=== PATIENT | male | born 1955 | race Caucasian/White ===

== ENCOUNTER → 2018-07-21 11:41 | Outpatient (CLI) | payer MEDICARE, SELFPAY ==
[2018-07-21 13:54] LABS: Alanine Aminotransferase 32 IU/L (21-72); Albumin 4.4 g/dL (3.5-5.0); Albumin Globulin Ratio 1.5 (1.0-2.8); Alkaline Phosphatase 74 U/L (38-126); Aspartate Aminotransferase 24 IU/L (17-59); Bilirubin Total 0.6 mg/dL (0.2-1.3); Blood Urea Nitrogen 17 mg/dL (9-20); Calcium 9.2 mg/dL (8.4-10.2); Carbon Dioxide 26 mmol/L (22-32); Chloride 101 mmol/L (98-107); Estimated Glomerular Filt Rate > 60.0 mL/min (>60); Globulin 2.9 g/dL (1.7-4.1); Glucose 155 mg/dL (80-110); HEMOLYSIS < 15 (0-50); Phenytoin / Dilantin 21.9 ug/mL (10-20); Potassium 4.2 mmol/L (3.4-5.1); Sodium 137 mmol/L (137-145); Total Protein 7.3 g/dL (6.3-8.2)
[2018-07-21 14:20] LABS: Prostate Specific Antigen Scrn 0.353 ng/mL (0.1-4.0)
== END ==
PROVIDERS: Family Provider Internal Medicine; PCP Internal Medicine; Visit Provider Internal Medicine
DX: Z12.5 Encounter for screening for malignant neoplasm of prostate (principal); G40.909 Epilepsy, unspecified, not intractable, without status epilepticus; Z13.1 Encounter for screening for diabetes mellitus; Z13.6 Encounter for screening for cardiovascular disorders
CPT/HCPCS: 36415; 80053; 80185; G0103

== ENCOUNTER 2018-12-19 20:55 | Emergency (ER) | payer MEDICARE, SELFPAY ==
[2018-12-19 21:03] VITALS: BP 159/74; PULSE 87; RESP 16; TEMP 36.7; O2SAT 95; BMI 33.9
--- NOTE | 2018-12-19 21:11 | ED_ITS ---
HPI - Male Genitourinary General Chief complaint: Urogenital-Male Stated complaint: blood in urine Time Seen by Provider: 12/19/18 20:57 Source: patient and family Mode of arrival: Ambulatory Limitations: no limitations History of Present Illness HPI Narrative: 63M smoker with history of seizures presents with his and the chief complaint of painless hematuria this afternoon. He denies any dysuria, frequency or urgency. He denies any flank pain, nausea or vomiting. He denies any dizziness, weakness or lightheadedness. He denies any recent injuries upper respiratory complaints or other. Denies any history of the same Onset (ago): hour(s) Related Data Previous Rx's Medication Instructions Recorded phenytoin sodium extended 100 mg See Rx Instructions .ROUTE 12/14/18 capsule .COMPLEX #120 capsule cephalexin [Keflex] 500 mg PO QID 7 Days #28 cap 12/20/18 hydrocodone-acetaminophen 1 tab PO Q4-6H PRN #10 tab 12/20/18 ondansetron 4 mg PO TID-QID PRN #10 tab 12/20/18 Allergies Allergy/AdvReac Type Severity Reaction Status Date / Time Penicillins [PENICILLINS] Allergy Mild RASH Verified 12/04/18 08:51 Review of Systems Constitutional Constitutional: Denies chills, Denies fatigue, Denies fever(s), Denies frequent falls, Denies lethargy and Denies weakness Eyes Eyes: Denies change in vision, Denies eye discharge, Denies irritation and Denies loss of vision ENT Ears, Nose, Mouth, and Throat: Denies change in voice, Denies dizziness, Denies neck pain, Denies sore throat and Denies throat swelling Cardiovascular Cardiovascular: Denies chest pain, Denies irregular heart rhythm, Denies lightheadedness, Denies palpitations, Denies dyspnea, Denies dyspnea on exertion and Denies orthopnea Respiratory Respiratory: Denies cough, Denies dyspnea, Denies dyspnea on exertion and Denies wheezing Gastrointestinal Gastrointestinal: Denies abdominal pain, Denies change in bowel habits, Denies diarrhea, Denies nausea and Denies vomiting Genitourinary Genitourinary: Reports hematuria, Denies flank pain, Denies urinary incontinence and Denies urinary urgency Musculoskeletal Musculoskeletal: Denies back pain, Denies muscle weakness, Denies neck pain, Denies numbness and Denies tingling Integumentary/Breasts Skin/Breast: Denies pruritus, Denies erythema, Denies rash and Denies wounds Neurologic Neurologic: Denies behavioral changes, Denies confusion, Denies dizziness, Denies frequent falls, Denies loss of vision, Denies numbness, Denies tingling and Denies weakness Psychiatric Psychiatric: Denies anxiety, Denies behavioral changes, Denies confusion, Denies depression, Denies homicidal ideation and Denies suicidal ideation Endocrine Endocrine: Denies fatigue, Denies flushing and Denies palpitations Hematologic/Lymphatic Hematologic/Lymphatic: Denies easy bruising Allergic/Immunologic Allergic/Immunologic: Denies urticaria, Denies throat swelling and Denies wheezing Patient History Medical History History of adenomatous polyp of colon (Inactive 01/07/11) Seizure disorder (Chronic 01/07/11) Surgical History Status post colectomy (Inactive) Social History Smoking Status: Current every day smoker alcohol intake frequency: 0-2 drinks per day Substance Use Type: marijuana Exam Narrative Exam Narrative: GENERAL: [63] year old patient appears stated age. Well- nourished, well-developed patient, in mild distress. HEAD: Atraumatic. Normocephalic. EYES: Pupils equal round and reactive. Extraocular motions intact. No scleral icterus. No injection or drainage. ENT: Nose without bleeding, purulent drainage. Throat without erythema, tonsillar hypertrophy or exudate. Airway patent. NECK: Trachea midline. Non tender CARDIOVASCULAR: Regular rate and rhythm without murmurs, gallops, or rubs. RESPIRATORY: Decreased breath sounds B/L with prolonged expiratory phase GASTROINTESTINAL: Abdomen soft, non-tender, nondistended. EXTREMITIES: No edema or joint tenderness. BACK: Nontender without deformity or crepitance. No flank tenderness. NEURO: AOx3. SKIN: No rash or erythema of visible areas Initial Vital Signs Initial Vital Signs: Vital Signs Temperature 98.0 F 12/19/18 21:03 Pulse Rate 87 12/19/18 21:03 Respiratory Rate 16 12/19/18 21:03 Blood Pressure 159/74 H 12/19/18 21:03 Pulse Oximetry 95 12/19/18 21:03 Course Orders Ordered: ED Orders 12/19/18 21:05 Urinalysis and Microscopic Stat 12/19/18 21:10 Basic Metabolic Panel Stat Complete Blood Count AUTO DIFF Stat Prothrombin Time INR Stat 12/19/18 21:50 Urinalysis and Microscopic Stat 12/19/18 23:27 CT kidney ureter bladder (KUB) Stat Discontinued Medications Hydrocodone Bitart/Acetaminophen (Vicodin Prepack) 1 bottle MISC SEEINSTR ONE Stop: 12/20/18 00:52 Last Admin: 12/20/18 01:13 Dose: 1 bottle Documented by: ROSA Ketorolac Tromethamine (Toradol) 15 mg IV NOW ONE Stop: 12/19/18 23:28 Last Admin: 12/19/18 23:35 Dose: 15 mg Documented by: ROSA Nicotine (Nicoderm) 21 mg TOP NOW ONE Stop: 12/19/18 21:18 Last Admin: 12/19/18 21:45 Dose: 21 mg Documented by: ROSA Ondansetron HCl (Zofran) 4 mg IV NOW ONE Stop: 12/19/18 23:28 Last Admin: 12/19/18 23:34 Dose: 4 mg Documented by: ROSA Ondansetron HCl (Zofran Odt Prepack) 1 bottle MISC SEEINSTR ONE Stop: 12/20/18 00:52 Last Admin: 12/20/18 01:13 Dose: 1 bottle Documented by: ROSA Reevaluation(s) Reevaluation #1: called to see patient for episode of severe, brief L flank pain and vomiting, CT ordered Consultations Consultation #1: call to Dr. Flores, urology at whom recommends follow up with their clinic next week, she took his contact info and will reach out Vital Signs Vital signs: Vital Signs - 8 hr 12/19/18 21:03 12/20/18 01:26 Temperature 98.0 F 98.0 F Pulse Rate 87 79 Respiratory Rate 16 16 Blood Pressure 159/74 H 146/75 H Pulse Oximetry 95 94 MDM - Male Genitourinary Lab Data Result diagrams: 12/19/18 21:10 12/19/18 21:10 Labs: Lab Results 11/09/19 11/09/19 11/09/19 Range/Units 21:05 21:10 21:10 WBC 8.2 (4.5-11.0) X10^3/uL RBC 5.72 (4.5-5.9) X10^6/uL Hgb 18.1 H (13.5-17.5) g/dL Hct 52.6 (41-53) % MCV 91.9 (80-100) fL MCH 31.6 (26-34) PG MCHC 34.4 (30-36) % RDW 13.8 (11.6-14.8) % Plt Count 197 (150-400) X10^3/uL Neut % (Auto) 53.3 (50-75) % Lymph % (Auto) 33.3 (25-40) % Clinton % (Auto) 9.1 (3-14) % Eos % (Auto) 3.3 (2-4) % Baso % (Auto) 1.0 (0-2) % Neut # (Auto) 4400 (2369-9722) /uL Lymph # (Auto) 2700 (2181-8158) /uL Clinton # (Auto) 700 (0-900) /uL Eos # (Auto) 300 (0-450) /uL Baso # (Auto) 100 (0-100) /uL PT (10.1-12.7) SECONDS INR (0.9-1.3) Sodium 137 (137-145) mmol/L Potassium 4.0 (3.4-5.1) mmol/L Chloride 102 (98-107) mmol/L Carbon Dioxide 27 (22-32) mmol/L BUN 18 (9-20) mg/dL Creatinine 1.00 (0.66-1.25) mg/dL Estimated GFR > 60.0 (>60) mL/min BUN/Creatinine Ratio 18.0 (6-22) Glucose 115 H (80-110) mg/dL Calcium 8.7 (8.4-10.2) mg/dL Urine Color Red Urine Appearance Other Urine pH Not Reportable Ur Specific Goode Not Reportable Urine Protein Not Reportable Urine Glucose (UA) Not Reportable Urine Ketones Not Reportable Urine Occult Blood Not Reportable Urine Nitrate Not Reportable Urine Bilirubin Not Reportable Urine Urobilinogen Not Reportable Ur Leukocyte Esterase Not Reportable Urine RBC Not Reportable Urine WBC Not Reportable Urine Bacteria Not Reportable Ur Culture Indicated? Cult not indicated Micro UA Comment * 12/19/18 12/19/18 Range/Units 21:10 21:50 WBC (4.5-11.0) X10^3/uL RBC (4.5-5.9) X10^6/uL Hgb (13.5-17.5) g/dL Hct (41-53) % MCV (80-100) fL MCH (26-34) PG MCHC (30-36) % RDW (11.6-14.8) % Plt Count (150-400) X10^3/uL Neut % (Auto) (50-75) % Lymph % (Auto) (25-40) % Clinton % (Auto) (3-14) % Eos % (Auto) (2-4) % Baso % (Auto) (0-2) % Neut # (Auto) (3680-8834) /uL Lymph # (Auto) (3112-6119) /uL Clinton # (Auto) (0-900) /uL Eos # (Auto) (0-450) /uL Baso # (Auto) (0-100) /uL PT 11.2 (10.1-12.7) SECONDS INR 1.0 (0.9-1.3) Sodium (137-145) mmol/L Potassium (3.4-5.1) mmol/L Chloride (98-107) mmol/L Carbon Dioxide (22-32) mmol/L BUN (9-20) mg/dL Creatinine (0.66-1.25) mg/dL Estimated GFR (>60) mL/min BUN/Creatinine Ratio (6-22) Glucose (80-110) mg/dL Calcium (8.4-10.2) mg/dL Urine Color Red Urine Appearance Other Urine pH 7.0 Ur Specific Goode 1.015 Urine Protein 3+ H Urine Glucose (UA) Negative Urine Ketones Not Reportable Urine Occult Blood 4+ H Urine Nitrate Not Reportable Urine Bilirubin Not Reportable Urine Urobilinogen Not Reportable Ur Leukocyte Esterase Not Reportable Urine RBC >100/hpf Urine WBC 10-30/hpf H Urine Bacteria None seen Ur Culture Indicated? Cult not indicated Micro UA Comment * Imaging Data CT scan - abdomen: Radiologist's impression: 10 cm left renal mass highly suspicious for renal malignancy like renal cell carcinoma with a small filling defect in the urinary bladder, considerations could be a blood clot Discharge Plan Departure Patient Disposition: Home Clinical Impression: Left kidney mass, Acute UTI Hematuria Qualifiers: Hematuria type: gross Qualified Code(s): R31.0 - Gross hematuria Discharge Date/Time: 12/20/18 01:27 Instructions: DI for Urinary Tract Infection (UTI), DI for Hematuria Activity Restrictions/Additional Instructions: *You have been diagnosed with [blood in urine, likely from a mass on your left kidney] *What to do: *Take medications as directed *Follow up with your primary care provider in 2-3 days, call for an appointment. Let them know you were seen in the Emergency Department and that we ask that you be seen in follow up. I have included contact information for the local urology group, also I called urology at the [facility] and they may call you *Return to ER if you should have any new, worsening or concerning symptoms, such as [worsening pain, ongoing vomiting, dizziness, lightheadedness, shortness of breath or other bothersome symptoms] Prescriptions: New hydrocodone-acetaminophen 5-325 mg tablet 1 tab PO Q4-6H PRN (Reason: pain) Qty: 10 RF: 0 cephalexin [Keflex] 500 mg capsule 500 mg PO QID 7 Days Qty: 28 RF: 0 ondansetron 4 mg tablet,disintegrating 4 mg PO TID-QID PRN (Reason: nausea and vomiting) Qty: 10 RF: 0 No Action phenytoin sodium extended 100 mg capsule See Rx Instructions .ROUTE .COMPLEX Qty: 120 RF: 11 Referrals: Jun Moser MD [Non-Staff] - Norm Clifton MD [Primary Care Provider] -
[2018-12-19 21:25] LABS: Add Manual Diff / Slide Review NO; Basophils Absolute Auto 100 /uL (0-100); Eosinophils Absolute Auto 300 /uL (0-450); Eosinophils Percent Auto 3.3 % (2-4); Hematocrit 52.6 % (41-53); Hemoglobin 18.1 g/dL (13.5-17.5); Lymphocytes Absolute Auto 2700 /uL (1100-4500); Lymphocytes Percent Auto 33.3 % (25-40); Mean Corpuscular HGB Conc 34.4 % (30-36); Mean Corpuscular Hemoglobin 31.6 PG (26-34); Mean Corpuscular Volume 91.9 fL (80-100); Monocytes Absolute Auto 700 /uL (0-900); Monocytes Percent Auto 9.1 % (3-14); Neutrophils Absolute Auto 4400 /uL (1500-7000); Neutrophils Percent Auto 53.3 % (50-75); Platelet Count 197 X10^3/uL (150-400); Red Blood Cell Count 5.72 X10^6/uL (4.5-5.9); Red Cell Distribution Width 13.8 % (11.6-14.8); White Blood Cell Count 8.2 X10^3/uL (4.5-11.0)
[2018-12-19 21:30] LABS: Prothrombin Time 11.2 SECONDS (10.1-12.7)
[2018-12-19 21:34] LABS: Blood Urea Nitrogen 18 mg/dL (9-20); Calcium 8.7 mg/dL (8.4-10.2); Carbon Dioxide 27 mmol/L (22-32); Chloride 102 mmol/L (98-107); Estimated Glomerular Filt Rate > 60.0 mL/min (>60); Glucose 115 mg/dL (80-110); HEMOLYSIS 18 (0-50); Sodium 137 mmol/L (137-145)
[2018-12-19 21:36] LABS: Appearance Urine UA OTHER; Color Urine UA RED
[2018-12-19 21:41] LABS: Culture Indicated Urine Cult Not Indicated
[2018-12-19] MEDS: NICOTINE 21 MG PATCH TOP (21:45)
[2018-12-19 22:14] LABS: Bacteria Urine None Seen; Color Urine UA RED
[2018-12-19 22:15] LABS: Appearance Urine UA OTHER; Glucose Urine UA NEGATIVE (Negative); Protein Urine UA 3+ (Negative); Specific Gravity Urine UA 1.015 (1.000-1.035)
[2018-12-19 22:16] LABS: Occult Blood Urine UA 4+ (Negative); RBC Urine >100/HPF (0-5/HPF)
[2018-12-19 22:17] LABS: WBC Urine 10-30/HPF (0-5/HPF)
[2018-12-19 22:19] LABS: Culture Indicated Urine Cult Not Indicated
--- NOTE | 2018-12-19 23:27 | DI.CT.S_ITS ---
PROCEDURE: CT KIDNEY URETER BLADDER (KUB) INDICATIONS: severe pain, hematuria TECHNIQUE: Noncontrast 5 mm thick sections acquired from the diaphragms to the symphysis. 5 mm thick coronal and sagittal reformats were then performed. For radiation dose reduction, the following was used: automated exposure control, adjustment of mA and/or kV according to patient size. COMPARISON: None. FINDINGS: Image quality: Excellent. Lung bases: Lung bases are clear. Heart size is normal. Urinary system: There is a heterogeneous mass seen involving the anterior superior left kidney, which measures 10.2 centimeters AP by 10.3 cm transversely, with a craniocaudal extent of 9 cm. Surrounding inflammatory changes are seen. Hyperdense material can be seen within the left renal collecting system, which is attributed to hemorrhage. To the limits of this noncontrast CT, no involvement of the left renal vein can be seen. No kidney stones. No hydronephrosis or perinephric fat stranding. Both ureters appear non-dilated throughout their expected courses. Bladder wall thickness is normal. Within the posterior bladder, there is a hyperdense lesion measuring 3 cm, as on series 2 image 83. Other solid organs: Liver is normal in size. Gallbladder demonstrates a gas containing gallstone, as on series 2 image 30. Pancreas is normal in contours. Spleen is normal in size. There is generalized thickening seen in either glands, yet without focal adrenal nodules. Peritoneum and bowel: Unenhanced bowel loops demonstrate normal wall thickness and caliber. No free fluid or air. Diverticulosis is seen, without findings of active diverticulitis. Right lower quadrant postoperative changes are seen. Nodes and vessels: No retroperitoneal or mesenteric adenopathy by size criteria. Aorta and inferior vena cava are normal in caliber. Atherosclerotic calcification is noted. Abdominal wall: No ventral hernias. Pelvis: No free pelvic fluid. No inguinal adenopathy. Fat-containing bilaterally inguinal hernias are seen, left larger than right. Bones: Mixed lytic and blastic lesions can be seen involving the bones of the pelvis, as on series 2 image 63. No vertebral body compression fractures. Mild dextroconvex scoliotic curvature is seen. Focal L4-L5 degenerative change. IMPRESSION: There is a 10.3 cm left renal mass seen, which represents renal cell carcinoma until proven otherwise. There is mixed lytic and blastic lesions involving the bones of the pelvis, potentially representing metastatic disease. Differential diagnosis includes benign, incidental lesions, however. No enlarged retroperitoneal nodes are seen. Hyperdense material is seen within the left renal collecting system, which is attributed to hemorrhage. There is a presumed clot seen within the posterior bladder. Incidental note is made of: Gallstone Right lower quadrant postoperative changes Diverticulosis is seen, without findings of active diverticulitis. Mild dextroconvex scoliotic curvature. Focal L4-L5 degenerative change Fat-containing bilateral inguinal hernias Note: No significant discrepancy from the preliminary report. Dictated by: Kenneth Wright M.D. on 12/20/2018 at 7:14 Approved by: Kenneth Wright M.D. on 12/20/2018 at 7:22
[2018-12-19] MEDS: ONDANSETRON 4 MG/2 ML INJ IV (23:34)
[2018-12-19] MEDS: KETOROLAC 60 MG/2 ML VIAL 15 MG IV (23:35)
[2018-12-20] MEDS: ONDANSETRON 4 MG ODT PREPACK 1 BOTTLE MISC (01:13)
[2018-12-20] MEDS: HYDROCODONE/ACET 5/325 PREPACK 1 BOTTLE MISC (01:13)
[2018-12-20 01:26] VITALS: BP 146/75; PULSE 79; RESP 16; TEMP 36.7; O2SAT 94
== END 2018-12-20 01:27 | disposition home or self-care (01) ==
PROVIDERS: Emergency Provider Emergency Medicine; Family Provider Internal Medicine; PCP Internal Medicine
DX: N28.89 Other specified disorders of kidney and ureter (principal); N39.0 Urinary tract infection, site not specified; R31.0 Gross hematuria
CPT/HCPCS: 36415; 74176; 80048; 81001; 85025; 85610; 96374; 96375; 99283; 99284; J1885; J2405

== ENCOUNTER → 2019-01-06 08:43 | Outpatient (CLI) | payer MEDICARE, SELFPAY ==
--- NOTE | 2019-01-06 | DI.CT.S_ITS ---
PROCEDURE: CT CHEST W CON INDICATIONS: Other specified disorders of kidney and ureter TECHNIQUE: After the administration of intravenous contrast, 5 mm thick sections acquired from the pulmonary apices to the posterior costophrenic angles. 1 mm axial lung, 5 mm thick coronal and sagittal reformats and 7 mm axial MIP were acquired. For radiation dose reduction, the following was used: automated exposure control, adjustment of mA and/or kV according to patient size. COMPARISON: [facility], CT, THORAX WITH CONTRAST, 08/20/2007, 9:03. FINDINGS: Image quality: Excellent. Lungs and pleura: No acute air space opacities. Mild upper lobe paraseptal emphysematous changes. Multiple small, scattered subpleural anterolateral left upper lobe ground glass nodules measuring approximately 2 mm. No larger nodules. No pleural effusions or pneumothorax. Central and peripheral airways are patent and normal in caliber. Mediastinum: Heart size is normal. No pericardial effusion. No mediastinal or hilar adenopathy by size criteria. Thoracic aorta and central pulmonary arteries are normal in size. Esophagus is normal in caliber. No hiatal hernia. Bones and chest wall: No suspicious bony lesions. No vertebral body compression fractures. No axillary or supraclavicular adenopathy by size criteria. Thyroid gland is normal. A subdermal nodule in the dorsal soft tissues at the T3 level measures to 3.7 cm, homogeneous low-density, and is well-defined. Abdomen: Visualized upper abdomen redemonstrates a partially imaged large heterogeneous left renal mass and symmetric bilateral adrenal gland thickening. IMPRESSION: 1. No suspicious nodules in the lungs and no suspicious adenopathy to suggest metastatic disease. 2. Nonspecific, subtle very small subpleural groundglass nodules in the anterolateral left upper lobe, most likely infectious or inflammatory. 3. Probable dorsal sebaceous cyst. 4. Left renal mass. See corresponding CT abdomen pelvis report. Dictated by: Smiley Luong M.D. on 01/06/2019 at 12:34 Approved by: Smiley Luong M.D. on 01/06/2019 at 12:49
--- NOTE | 2019-01-06 | DI.NM.S_ITS ---
PROCEDURE: NM BONE SCAN WHOLE BODY RADIOPHARMACEUTICAL: 19.4 mCi Tc-99m MDP IV. INDICATIONS: Other specified disorders of kidney and ureter TECHNIQUE: Delayed whole-body scintigrams were obtained approximately 3-4 hours after intravenous injection of radiotracer. Anterior and posterior views were acquired from vertex to feet. Additional left and right oblique views of the pelvis were obtained. COMPARISON: [facility], CT, CT CHEST W CON, 01/06/2019, 9:42. [facility], CT, CT ABDOMEN PELVIS WO/W CON, 01/06/2019, 9:42. FINDINGS: Physiologic uptake is noted within the kidneys and bladder. Increased uptake is noted at the knees as well as small bones of the feet suggestive of degenerative change. Increased uptake is noted at the level of L5 also suggestive of degenerative change. Area of sclerosis and lucency within the left ilium seen on CT exam on 03/08/18 does not appear to correlate to increased uptake. IMPRESSION: No areas of definite metastatic disease. Dictated by: Albertina Pandey M.D. on 01/06/2019 at 15:26 Approved by: Albertina Pandey M.D. on 01/06/2019 at 15:33
--- NOTE | 2019-01-06 | DI.CT.S_ITS ---
PROCEDURE: CT ABDOMEN PELVIS WO/W CON INDICATIONS: Other specified disorders of kidney and ureter TECHNIQUE: Optional 5 mm thick noncontrast images acquired from the diaphragm to the symphysis pubis. After the administration of intravenous contrast, 5 mm thick images acquired from the diaphragm to the symphysis pubis after a 10-minute delay. 2 mm thick coronal and sagittal reformats were then performed of the kidneys and ureters. For radiation dose reduction, the following was used: automated exposure control, adjustment of mA and/or kV according to patient size. COMPARISON: [facility], CT, CT KIDNEY URETER BLADDER (KUB), 12/19/2018, 23:41. FINDINGS: Image quality: Excellent. Lung bases: Lung bases are clear. Heart size is normal. Urinary system: The large, heterogeneous mixed cystic and solid left renal mass measuring about 11.5 x 10.3 x 8.9 cm encompassing much of the mid and upper left kidney. The mass extends into and compresses the portion of the collecting system. There is circumferential soft tissue thickening involving the renal pelvis as well as the upper and lower pole major calyx and extending into the proximal left ureter demonstrated by luminal narrowing. Mild peripelvic fat stranding. Mild diffuse perinephric fat stranding and thickening of the perinephric fascia. The venous structures are not well opacified with contrast and a thrombus may not be detected. There are small collateral perinephric vessels surrounding the kidney. Mid and distal left ureter appears normal. The right kidney and ureter are normal. In the urinary bladder, there is a polypoid, microlobulated mass arising from the posterior lateral right bladder wall immediately adjacent to the ureterovesicular junction measuring 1.5 cm and demonstrating mild contrast enhancement. Other solid organs: Liver is normal in size and enhancement. Gallbladder contains a noncalcified stone in the neck measuring about 3.2 cm.. Biliary system is non dilated. Pancreas enhances normally. Spleen is normal in size and enhancement. The adrenal glands demonstrate lobulated, diffuse low density thickening bilaterally, symmetrically. Peritoneum and bowel: Right upper abdominal ileocolonic anastomosis. Occasional diverticula in the descending and sigmoid colon. Bowel loops demonstrate normal wall thickness and caliber. No free fluid or air. Nodes and vessels: No retroperitoneal or mesenteric adenopathy by size criteria. Aorta and inferior vena cava are normal in size. Abdominal wall: No ventral hernias. Pelvis: No pathologic free pelvic fluid. No inguinal hernias or adenopathy. Normal size prostate gland. Bones: There is a 1.9 cm mixed lytic and sclerotic bone lesion in the left ilium, and a few scattered vague mildly sclerotic lesions in the right and left ilium, punctate sclerotic lesions in the left acetabulum, and the microlobulated 11 mm sclerotic lesion in the right posterior acetabulum. Degenerative changes in the lumbar spine. No vertebral body compression fractures. IMPRESSION: 1. 11.5 cm solid left renal mass consistent with carcinoma renal cell versus transitional cell. 2. Soft tissue thickening circumferentially involving major calyces and proximal left ureter suspicious for spread of disease. This also raises the possibility of transitional cell carcinoma. 3. 1.5 cm polypoid intraluminal right posterior bladder mass. This is suspicious for transitional cell carcinoma, although a blood clot is possible, less likely. 4. Indeterminant mixed lytic and sclerotic bone lesions in the pelvis. Correlate with bone scan is recommended. 5. No significant adenopathy. Dictated by: Smiley Luong M.D. on 01/06/2019 at 12:50 Approved by: Smiley Luong M.D. on 01/06/2019 at 13:13
== END ==
PROVIDERS: PCP Internal Medicine; Visit Provider Urology
DX: N28.89 Other specified disorders of kidney and ureter (principal); N32.9 Bladder disorder, unspecified; R91.8 Other nonspecific abnormal finding of lung field
CPT/HCPCS: 71260; 74178; 78306; A9503; Q9967

== ENCOUNTER → 2019-01-06 08:44 | Outpatient (CLI) | payer MEDICARE, SELFPAY | PROVIDERS: PCP Internal Medicine; Visit Provider Urology | DX: N28.89 Other specified disorders of kidney and ureter (principal); N32.9 Bladder disorder, unspecified; R91.8 Other nonspecific abnormal finding of lung field ==

== ENCOUNTER → 2019-07-21 09:20 | Outpatient (CLI) | payer MEDICARE, SELFPAY ==
--- NOTE | 2019-07-21 10:28 | DI.CT.S_ITS ---
PROCEDURE: CT CHEST ABD PEL W CON INDICATIONS: Other specified disorders of kidney and ureter TECHNIQUE: After the administration of oral and intravenous contrast, 5 mm thick sections acquired from the lung apices to the symphysis. 5 mm coronal and sagittal reformats were performed, with additional 7 mm coronal MIP reformats through the lungs. For radiation dose reduction, the following was used: automated exposure control, adjustment of mA and/or kV according to patient size. COMPARISON: [facility], CT, CT ABDOMEN PELVIS WO/W CON, 01/06/2019, 9:42. [facility], CT, CT CHEST W CON, 01/06/2019, 9:42. FINDINGS: Image quality: Excellent. CHEST: Lungs and pleura: No acute airspace opacities. No pleural effusions or pneumothorax. Central and peripheral airways appear patent and normal in caliber. Mediastinum: Heart size is normal. No pericardial effusion. No mediastinal or hilar adenopathy by size criteria. Thoracic aorta and central pulmonary arteries are normal in size. Esophagus is normal in caliber. No hiatal hernia. Chest wall: No axillary or supraclavicular adenopathy by size criteria. Thyroid gland appears normal. ABDOMEN: Solid organs: Liver is normal in size and enhancement. Gallbladder contains anterior stones with central radiolucency. Biliary system is non dilated. Pancreas enhances normally. Spleen is normal in size and enhancement. No adrenal nodules. The right kidney demonstrates normal size and enhancement, without hydronephrosis. A large left renal mass has been resected with no evidence of recurrent mass at the operative bed. Peritoneum and bowel: Bowel loops demonstrate normal wall thickness and caliber. No free fluid or air. Nodes and vessels: No retroperitoneal or mesenteric adenopathy by size criteria. Aorta and inferior vena cava are normal in size. Miscellaneous: No ventral hernias. PELVIS: Genitourinary: Bladder wall thickness is normal. Note is made of a small amount of gas within the anterior bladder lumen, source indeterminate. Miscellaneous: No inguinal hernias or adenopathy. Bones: No suspicious bony lesions. No vertebral body compression fractures. IMPRESSION: Interval left nephrectomy, no evidence of recurrent neoplasm at the operative bed or development of metastatic disease. There is an unexpected finding of a small amount of anterior gas within the lateral lumen, without adjacent inflammation. Etiology is uncertain. Dictated by: Dimas Hopson M.D. on 07/21/2019 at 12:39 Approved by: Dimas Hopson M.D. on 07/21/2019 at 12:44
== END ==
PROVIDERS: PCP Internal Medicine; Referring Provider Urology; Visit Provider Urology
DX: N28.89 Other specified disorders of kidney and ureter (principal)
CPT/HCPCS: 71260; 74177; Q9967

== ENCOUNTER 2020-01-17 10:03 | Emergency (ER) | payer MEDICARE, SELFPAY ==
[2020-01-17 10:23] VITALS: BP 138/76; PULSE 79; RESP 16; TEMP 36.7; O2SAT 100; BMI 33.9
[2020-01-17 10:56] LABS: Add Manual Diff / Slide Review NO; Basophils Absolute Auto 100 /uL (0-100); Basophils Percent Auto 1.1 % (0-2); Eosinophils Absolute Auto 300 /uL (0-450); Eosinophils Percent Auto 4.5 % (2-4); Hematocrit 46.2 % (41-53); Hemoglobin 15.6 g/dL (13.5-17.5); Lymphocytes Absolute Auto 1500 /uL (1100-4500); Mean Corpuscular HGB Conc 33.9 % (30-36); Mean Corpuscular Hemoglobin 31.3 PG (26-34); Mean Corpuscular Volume 92.3 fL (80-100); Monocytes Absolute Auto 400 /uL (0-900); Monocytes Percent Auto 6.7 % (3-14); Neutrophils Absolute Auto 4000 /uL (1500-7000); Neutrophils Percent Auto 63.7 % (50-75); Platelet Count 206 X10^3/uL (150-400); Red Cell Distribution Width 13.5 % (11.6-14.8); White Blood Cell Count 6.3 X10^3/uL (4.5-11.0)
[2020-01-17 11:08] LABS: Alanine Aminotransferase 33 IU/L (<50); Albumin 4.5 g/dL (3.5-5.0); Albumin Globulin Ratio 1.5 (1.0-2.8); Alkaline Phosphatase 95 U/L (38-126); Aspartate Aminotransferase 30 IU/L (17-59); BUN Creatinine Ratio 15.2 (6-22); Bilirubin Total 0.6 mg/dL (0.2-1.3); Blood Urea Nitrogen 22 mg/dL (9-20); Calcium 8.9 mg/dL (8.4-10.2); Carbon Dioxide 26 mmol/L (22-32); Chloride 102 mmol/L (98-107); Estimated Glomerular Filt Rate 49.3 mL/min (>60); Glucose 122 mg/dL (80-110); HEMOLYSIS < 15 (0-50); Lipase 187 U/L (23-300); Potassium 4.4 mmol/L (3.4-5.1); Sodium 135 mmol/L (137-145); Total Protein 7.5 g/dL (6.3-8.2)
--- NOTE | 2020-01-17 12:49 | ED_ITS ---
HPI - Abdominal Pain General Chief Complaint: Abdominal Pain Stated Complaint: left sided bulge of abd x1 day Time Seen by Provider: 01/17/20 12:30 Source: patient Mode of arrival: Ambulatory Limitations: no limitations History of Present Illness HPI narrative: 64-year-old male comes to the emergency department with complaint of a lump on his left side. Patient states that he had a prior nephrectomy and has an incision there that was about a year ago. He has not noticed this before yesterday he denies any other symptoms. He states he did was not really checking or looking for any lumps before. He does not pain, he has not had fevers, he has chest pain or shortness of breath. No nausea, no vomiting, no i ssues with bowel movements. He is stooling regularly. No issues with urination. Patient has not had any pain, redness or other changes. He had a nephrectomy on the left side secondary to a melanoma. He has also had a partial colectomy secondary to polyps in the past with a midline incision that is healed. He takes an antihypertensive and anti seizure medication. Related Data Previous Rx's Medication Instructions Recorded phenytoin sodium extended 100 mg 200 mg PO BID #120 cap 11/12/19 capsule amlodipine 10 mg tablet 10 mg PO DAILY #90 tab 11/23/19 Allergies Allergy/AdvReac Type Severity Reaction Status Date / Time Penicillins [PENICILLINS] Allergy Mild RASH Verified 11/23/19 11:32 Review of Systems Review of Systems ROS Unobtainable: All systems reviewed & are unremarkable except as noted in HPI and below Patient History Medical History Bladder tumor (~01/2019) Essential hypertension History of adenomatous polyp of colon (01/07/11) Renal cell carcinoma (~01/2019) Seizure disorder (01/07/11) Surgical History Status post colectomy Social History Smoking Status: Current every day smoker Smoking Status: Current every day smoker alcohol intake frequency: 0-2 drinks per day Substance Use Type: marijuana Exam Narrative Exam Narrative: GENERAL: Alert and oriented x three, obese, well-appearing male in mild distress. HEENT: Head normocephalic, atraumatic, EOMI, pupils reactive, face symmetric, moist mucous membranes NECK: Supple, full range of motion CARDIOVASCULAR: Regular rate and rhythm without murmurs, rubs or gallops. RESPIRATORY: Breath sounds equal bilaterally, no wheezes rales or rhonchi. ABDOMEN: Soft, nontender. Normoactive bowel sounds all 4 quadrants. No guarding or rebound, rigidity, no mass. Patient has a midline incision that is clean dry and healed. He has a left flank incision that is clean dry and healed that appears old. Patient does appear slightly distended that side but it is sort of a generalized change in the general area of the incision but is not specific in just to that area., I am not able to palpate a specific mass, or fluid or induration area. There is no redness, warmth, there is no tenderness. : No CVA tenderness EXTREMITIES: Normal range of motion, no clubbing or edema. Neurovascularly intact NEUROLOGICAL: Cranial nerves II through XII grossly intact. Moving all extremities SKIN: Warm, dry, no petechiae, no rashes or lesions. Initial Vital Signs Initial Vital Signs: Vital Signs Temperature 98.1 F 01/17/20 10:23 Pulse Rate 79 01/17/20 10:23 Respiratory Rate 16 01/17/20 10:23 Blood Pressure 138/76 01/17/20 10:23 Pulse Oximetry 100 01/17/20 10:23 Course Orders Ordered: ED Orders 01/17/20 10:45 Complete Blood Count AUTO DIFF Stat Comprehensive Metabolic Panel Stat Lipase Stat 01/17/20 12:48 CT kidney ureter bladder (KUB) Stat Reevaluation(s) Reevaluation #1: patient discharged from bedside, did not want to wait for paperwork. All questions answered and asked to have renal function rechecked as it is down from prior. Time: 14:20 Vital Signs Vital signs: Vital Signs - 8 hr 01/17/20 10:23 Temperature 98.1 F Pulse Rate 79 Respiratory Rate 16 Blood Pressure 138/76 Pulse Oximetry 100 MDM - Abdominal Pain Lab Data Attestation: I reviewed the patient's lab results. Lab results narrative: Patient's renal functions decreased from prior otherwise no major lab abnormalities Result diagrams: 01/17/20 10:45 01/17/20 10:45 Labs: Lab Results 01/17/20 01/17/20 Range/Units 10:45 10:45 WBC 6.3 (4.5-11.0) X10^3/uL RBC 5.00 (4.5-5.9) X10^6/uL Hgb 15.6 (13.5-17.5) g/dL Hct 46.2 (41-53) % MCV 92.3 (80-100) fL MCH 31.3 (26-34) PG MCHC 33.9 (30-36) % RDW 13.5 (11.6-14.8) % Plt Count 206 (150-400) X10^3/uL Neut % (Auto) 63.7 (50-75) % Lymph % (Auto) 24.0 L (25-40) % [place] % (Auto) 6.7 (3-14) % Eos % (Auto) 4.5 H (2-4) % Baso % (Auto) 1.1 (0-2) % Neut # (Auto) 4000 (8542-6730) /uL Lymph # (Auto) 1500 (8236-4334) /uL [place] # (Auto) 400 (0-900) /uL Eos # (Auto) 300 (0-450) /uL Baso # (Auto) 100 (0-100) /uL Sodium 135 L (137-145) mmol/L Potassium 4.4 (3.4-5.1) mmol/L Chloride 102 (98-107) mmol/L Carbon Dioxide 26 (22-32) mmol/L BUN 22 H (9-20) mg/dL Creatinine 1.45 H (0.66-1.25) mg/dL Estimated GFR 49.3 L (>60) mL/min BUN/Creatinine Ratio 15.2 (6-22) Glucose 122 H (80-110) mg/dL Calcium 8.9 (8.4-10.2) mg/dL Total Bilirubin 0.6 (0.2-1.3) mg/dL AST 30 (17-59) IU/L ALT 33 (<50) IU/L Alkaline Phosphatase 95 (38-126) U/L Total Protein 7.5 (6.3-8.2) g/dL Albumin 4.5 (3.5-5.0) g/dL Globulin 3.0 (1.7-4.1) g/dL Albumin/Globulin Ratio 1.5 (1.0-2.8) Lipase 187 (23-300) U/L Point of care testing: Urine Dip Bedside Urine Glucose Negative Bedside Urine Bilirubin - Negative Bedside Urine Ketone - Negative Urine Specific [place] 1.020 Bedside Urine Occult Blood - Negative Bedside Urine pH 6.0 Bedside Urine Protein - Negative Bedside Urine Urobilinogen - Negative Bedside Urine Nitrite - Negative Imaging Data CT scan - abdomen/pelvis: Radiologist's Impression: [address] [id number] Scan ReportSigned Patient: Kaiden Corrales FMR#: [id number]: 8Acct:[id number]/Sex: 64 / MDate of Service: 01/17/20Loc: EDAccession Number: [id number] Procedure: CT kidney ureter bladder (KUB) Ordering Provider: Abiola Garcia D.O. PROCEDURE: CT KIDNEY URETER BLADDER (KUB) INDICATIONS: left sided bulge at site or prior nephrectomy TECHNIQUE: Noncontrast 5 mm thick sections acquired from the diaphragms to the symphysis. 5 mm thick coronal and sagittal reformats were then performed. For radiation dose reduction, the following was used: automated exposure control, adjustment of mA and/or kV according to patient size. COMPARISON: [facility], CT, CT CHEST ABD PEL W CON, 07/21/2019, 10:22. [facility], CR, XR RETROGRADE UROGRAPHY, 01/19/2019, 13:39. [facility], CT, CT ABDOMEN PELVIS WO/W CON, 01/06/2019, 9:42. [facility], CT, CT KIDNEY URETER BLADDER (KUB), 12/19/2018, 23:41. FINDINGS: Image quality: Excellent. Lung bases: Lung bases are clear. Heart size is normal. Urinary system: Status post left nephrectomy. No recurrence soft tissue mass identified. There are numerous clips within the nephrectomy bed. No right- sided hydronephrosis. No right nephrolithiasis. The right ureter appears nondilated. No bladder calculi seen. Left adrenal gland not well seen and may be absent. Other solid organs: Liver is normal in size. Gallbladder multiple low- attenuation gallstones presumably cholesterol calculi . Pancreas is normal in contours. Spleen is normal in size. No adrenal nodules. Peritoneum and bowel: Unenhanced bowel loops demonstrate normal wall thickness and caliber. No free fluid or air. Appendix is not clearly identified however no suspicious pericecal inflammatory changes are seen. Colonic diverticulosis is seen without evidence of acute complication. Nodes and vessels: No retroperitoneal or mesenteric adenopathy by size criteria. Aorta and inferior vena cava are normal in caliber. Scattered vascular calcifications seen in the aorta. There is mild asymmetric broad-based bulge of the left lateral abdominal wall however the appearance is grossly unchanged. Pelvis: No free pelvic fluid. Left groin lipoma is unchanged image 83/2. Bones: No vertebral body compression fracture. Spondylytic changes and facet arthropathy. IMPRESSION: Redemonstrated postsurgical changes from prior left nephrectomy. No discrete soft tissue mass identified. Incidental cholesterol calculi as before. Additional chronic and incidental findings as above. Dictated by: Herbert Mares M.D. on 01/17/2020 at 13:43 Approved by: Herbert Mares M.D. on 01/17/2020 at 14:06 MDM Narrative Medical decision making narrative: Patient comes in with a bulge on his left side, no discrete hernia but imaging was obtained. Patient has a history of prior left nephrectomy and has a prior scar at that site. There is no soft tissue mass identified, there is a mild asymmetric broad-based bulge at the left lateral abdominal wall the appearance is grossly unchanged from prior imaging. Patient and I discussed the findings. His renal function was decreased compare d to one year prior. Patient was asked to consult his urologist who is his main medical care provider to make sure that they recheck his renal function to make sure he is not having a major change or decrease in his single kidney function. Patient and significant other both expressed understanding, patient was adamant that it was time for him to leave so he did not want to wait for discharge paperwork or contact with urology. Discharge Plan Departure Patient Disposition: Home Clinical Impression: Abdominal wall bulge Activity Restrictions/Additional Instructions: You have a bulge in your abdominal wall on imaging. There is no sign of bowel entrapment. It is recommended to help decrease the intra-abdominal pressure to have weight loss and or strengthening of your abdominal wall muscles If you notice any new or changing bulge, if you are having pain, nausea vomiting, having difficulty with bowel movements or no bowel movements or flatus return to the ER. Prescriptions: No Action phenytoin sodium extended 100 mg capsule 200 mg PO BID Qty: 120 RF: 11 amlodipine 10 mg tablet 10 mg PO DAILY Qty: 90 RF: 3 Referrals: Norm Clifton MD [Primary Care Provider] - Gris Sheppard MD [Non-Staff] -
== END 2020-01-17 14:27 | disposition home or self-care (01) ==
PROVIDERS: Emergency Provider Emergency Medicine; PCP Internal Medicine
DX: R19.00 Intra-abdominal and pelvic swelling, mass and lump, unspecified site (principal); E66.9 Obesity, unspecified; Z68.33 Body mass index [BMI] 33.0-33.9, adult; G40.909 Epilepsy, unspecified, not intractable, without status epilepticus; I10 Essential (primary) hypertension
CPT/HCPCS: 36415; 74176; 80053; 81003; 83690; 85025; 99284

== ENCOUNTER → 2020-05-11 09:55 | Outpatient (CLI) | payer MEDICARE, SELFPAY ==
[2020-05-11] MEDS: COVID-19 VACC #1, MRNA(MOD) 100 MCG/0.5 ML VIAL IM (10:01)
== END ==
PROVIDERS: PCP Internal Medicine; Visit Provider Internal Medicine
DX: Z23 Encounter for immunization (principal)
CPT/HCPCS: 0011A; 91301

== ENCOUNTER → 2020-06-08 09:40 | Outpatient (CLI) | payer MEDICARE, SELFPAY ==
[2020-06-08] MEDS: COVID-19 VACC #2, MRNA(MOD) 100 MCG/0.5 ML VIAL IM (09:45)
== END ==
PROVIDERS: PCP Internal Medicine; Visit Provider Internal Medicine
DX: Z23 Encounter for immunization (principal)
CPT/HCPCS: 0012A; 91301

== ENCOUNTER → 2020-08-28 11:11 | Outpatient (CLI) | payer MEDICARE, SELFPAY ==
[2020-08-28 11:40] LABS: Estimated Glomerular Filt Rate 54.5 mL/min (>60)
--- NOTE | 2020-08-28 12:13 | DI.CT.S_ITS ---
PROCEDURE: CT ABDOMEN PELVIS W CON INDICATIONS: Personal history of malignant neoplasm of bladder/ TECHNIQUE: After the administration of oral and intravenous contrast, axial sections were acquired from the lung bases to the pubic symphysis. Coronal and sagittal reformats were performed. For radiation dose reduction, the following was used: automated exposure control, adjustment of mA and/or kV according to patient size. COMPARISON:[facility], CT, CT ABDOMEN PELVIS WO/W CON, 01/06/2019, 9:42. [facility], CT, CT CHEST ABD PEL W CON, 07/21/2019, 10:22. [facility], CT, CT KIDNEY URETER BLADDER (KUB), 01/17/2020, 13:31. FINDINGS: Image quality: Excellent. Lung bases: Unremarkable. Heart: No significant findings. ABDOMEN: Liver: Unremarkable. Gallbladder: Gallbladder contains multiple stones including a possibly impacted gallbladder neck stone. Biliary ducts: Unremarkable. Pancreas: Unremarkable. Spleen: Unremarkable. Adrenal Glands: Unremarkable. Kidneys and Ureters: Left kidney surgically absent. Right kidney and ureter are unremarkable. Stomach and Bowel: Stomach, small bowel loops, and colon are unremarkable. Peritoneum: No abnormal intraperitoneal fluid. No free air. Ventral Wall: No hernia. Abdominal Nodes: No retroperitoneal or mesenteric adenopathy by size criteria. Vessels: Aorta and inferior vena cava are normal in size. PELVIS: Pelvic Organs: Unremarkable. Bladder: Unremarkable. Pelvic Nodes: No enlarged lymph nodes. Miscellaneous: No inguinal hernias are seen. Bones: Chronic large calcified right paracentral/foraminal disc extrusion, at L4-L5, with chronic severe right foraminal stenosis with right L4 nerve root impingement and severe right lateral recess and moderate central canal stenosis. There is also moderate left foraminal disc bulge with flattening deformity on the exiting left L4 nerve root. IMPRESSION: 1. Remote left nephrectomy with no evidence of local recurrence or metastatic disease in the abdomen and pelvis. 2. Incidental note is made of a chronic right paracentral/right foraminal disc extrusion with moderate central canal stenosis, severe right lateral recess stenosis, and obliteration of the right L4 nerve root in the right foramen. 3. Cholelithiasis. Dictated by: Angelo Vides M.D. on 08/28/2020 at 13:18 Approved by: Angelo Vides M.D. on 08/28/2020 at 13:26
== END ==
PROVIDERS: PCP Internal Medicine; Referring Provider Urology; Visit Provider Urology
DX: Z08 Encounter for follow-up examination after completed treatment for malignant neoplasm (principal); Z85.51 Personal history of malignant neoplasm of bladder; K80.20 Calculus of gallbladder without cholecystitis without obstruction; M51.26 Other intervertebral disc displacement, lumbar region; M48.061 Spinal stenosis, lumbar region without neurogenic claudication; Z90.5 Acquired absence of kidney
CPT/HCPCS: 36415; 74177; 82565; Q9967

== ENCOUNTER → 2021-04-12 10:50 | Outpatient (CLI) | payer MEDICARE, SELFPAY ==
[2021-04-12 12:16] LABS: Alanine Aminotransferase 32 IU/L (<50); Albumin 4.5 g/dL (3.5-5.0); Albumin Globulin Ratio 1.4 (1.0-2.8); Alkaline Phosphatase 79 U/L (38-126); Aspartate Aminotransferase 30 IU/L (17-59); BUN Creatinine Ratio 11.9 (6-22); Bilirubin Total 0.6 mg/dL (0.2-1.3); Blood Urea Nitrogen 19 mg/dL (9-20); Calcium 9.3 mg/dL (8.4-10.2); Carbon Dioxide 30 mmol/L (22-32); Chloride 104 mmol/L (98-107); Cholesterol 189 mg/dL (140-199); Estimated Glomerular Filt Rate 43.9 mL/min (>60); Globulin 3.2 g/dL (1.7-4.1); Glucose 104 mg/dL (80-110); HDL Cholesterol 53 mg/dL (40-60); HEMOLYSIS < 15 (0-50); LDL Cholesterol Calculated 114 mg/dL (<100); Potassium 5.1 mmol/L (3.4-5.1); Sodium 139 mmol/L (137-145); Total Protein 7.7 g/dL (6.3-8.2); Triglycerides 108 mg/dL (35-150)
[2021-04-12 12:43] LABS: Prostate Specific Antigen Scrn 0.629 ng/mL (0.1-4.0)
== END ==
PROVIDERS: PCP Internal Medicine; Referring Provider Internal Medicine; Visit Provider Internal Medicine
DX: I10 Essential (primary) hypertension (principal); Z12.5 Encounter for screening for malignant neoplasm of prostate; C64.2 Malignant neoplasm of left kidney, except renal pelvis; Z13.220 Encounter for screening for lipoid disorders
CPT/HCPCS: 36415; 80053; 80061; G0103

== ENCOUNTER → 2021-05-24 09:04 | Outpatient (CLI) | payer MEDICARE, SELFPAY ==
[2021-05-24 11:00] LABS: BUN Creatinine Ratio 13.8 (6-22); Blood Urea Nitrogen 20 mg/dL (9-20); Calcium 8.8 mg/dL (8.4-10.2); Carbon Dioxide 26 mmol/L (22-32); Chloride 104 mmol/L (98-107); Estimated Glomerular Filt Rate 54 mL/min (>60); Glucose 95 mg/dL (80-110); HEMOLYSIS < 15 (0-50); Potassium 4.8 mmol/L (3.4-5.1); Sodium 140 mmol/L (137-145)
[2021-05-24 11:21] LABS: Prostate Specific Antigen Scrn 0.592 ng/mL (0.1-4.0)
== END ==
PROVIDERS: PCP Internal Medicine; Referring Provider Urology; Visit Provider Urology
DX: C64.2 Malignant neoplasm of left kidney, except renal pelvis (principal); D49.4 Neoplasm of unspecified behavior of bladder; Z12.5 Encounter for screening for malignant neoplasm of prostate; B35.6 Tinea cruris; Z72.0 Tobacco use; Z71.6 Tobacco abuse counseling; Z98.890 Other specified postprocedural states
CPT/HCPCS: 36415; 80048; 81002; 99215; G0103

== ENCOUNTER → 2021-06-05 12:29 | Outpatient (CLI) | payer MEDICARE, SELFPAY ==
--- NOTE | 2021-06-05 12:32 | DI.CT.S_ITS ---
PROCEDURE: CT CHEST ABD PEL W CON INDICATIONS: bladder tumor TECHNIQUE: After the administration of oral and intravenous contrast, axial sections acquired from the supraclavicular neck to the pubic symphysis. Coronal and sagittal reformats were performed. For radiation dose reduction, the following was used: automated exposure control, adjustment of mA and/or kV according to patient size. COMPARISON: [facility], CT, CT CHEST ABD PEL W CON, 07/21/2019, 10:22. FINDINGS: Image quality: Excellent. CHEST: Lower Neck: No enlarged lymph nodes. Thyroid: Thyroid appears unremarkable. Axillae: No enlarged lymph nodes. Chest Wall: Unremarkable. Lungs and Airways: No suspicious consolidation/mass or suspicious nodules. Mild atelectasis involving the inferior lingula. Pleura: No pneumothorax or pleural effusions. Heart: Heart size is normal. No pericardial effusion. Coronary atherosclerotic vascular calcifications are noted. Thoracic Vessels: The aorta and pulmonary arteries demonstrate normal size. Atherosclerosis of the thoracic aorta. Mediastinum and [place]: No enlarged lymph nodes. Esophagus: No wall thickening. No hiatal hernia. ABDOMEN: Liver: Unremarkable. Gallbladder: Redemonstration of multiple central lucent gallbladder stones. No CT evidence for acute cholecystitis. Biliary ducts: Unremarkable. Pancreas: Homogeneous enhancement without focal lesions or pancreatic ductal dilatation. No peripancreatic inflammation or organized fluid collections. Spleen: Unremarkable. Adrenal Glands: No adrenal nodules. Stable appearance of diffuse thickening of the right adrenal gland. The left adrenal gland is not definitively visualized as before and presumably resected. Kidneys and Ureters: Status post left nephrectomy. No suspicious or developing soft tissue densities noted within the left renal fossa. Postsurgical changes of the left diaphragmatic jackson. Right Kidney is normal in appearance. No hydronephrosis. Right ureter is normal in course and caliber without ureteral stone. The left ureter has been partially resected. The proximal left ureter is surgically absent. Distal left ureter is normal in course and caliber. Stomach and Bowel: Stomach, small bowel loops, and colon are unremarkable. A few scattered colonic diverticula without evidence for acute diverticulitis. Surgical changes in the right lower quadrant likely from prior appendectomy. Peritoneum: No abnormal intraperitoneal fluid. No free air. Stable appearance of nonspecific mild stranding involving lateral aspect of the left lower quadrant anterior to the iliac vessels. This is not significantly changed. No evidence for developing mass lesions in this region and this may represent sequela of prior intervention. There is a prominent, stable lymph node identified between the lateral wall of the left side of the urinary bladder and anterior to the left distal iliac vessels (image 124/series 2). Ventral Wall: No hernia. Abdominal Nodes: No retroperitoneal or mesenteric adenopathy by size criteria. Vessels: Scattered atherosclerotic calcifications of the abdominal aorta and iliac vessels without aneurysmal dilatation. The inferior vena cava appears patent. PELVIS: Pelvic Organs: Reproductive organs are unremarkable as imaged. Bladder: Urinary bladder thickness appears normal for degree of distention. No perivesicular inflammatory stranding. Pelvic Nodes: No enlarged lymph nodes. Miscellaneous: No inguinal hernias are seen. Bones: No acute vertebral body compression fractures. Multilevel spondylitic changes throughout the imaged spine. Redemonstration of a few well-circumscribed sclerotic foci identified in the bony structures of the pelvis, likely representing bone islands. These are not significantly changed. Otherwise, no new or suspicious osseous lesions. IMPRESSION: 1. Stable postsurgical changes status post left nephrectomy without evidence for tumor recurrence or development of metastatic disease. No suspicious adenopathy. 2. Cholelithiasis without CT evidence for acute cholecystitis. 3. Colonic diverticulosis without acute diverticulitis. 4. Atherosclerosis. Dictated by: Bob Burkett M.D. on 06/05/2021 at 18:14 Approved by: Bob Burkett M.D. on 06/05/2021 at 18:30
== END ==
PROVIDERS: PCP Internal Medicine; Referring Provider Urology; Visit Provider Urology
DX: D49.4 Neoplasm of unspecified behavior of bladder; C64.2 Malignant neoplasm of left kidney, except renal pelvis; K80.20 Calculus of gallbladder without cholecystitis without obstruction; K57.90 Diverticulosis of intestine, part unspecified, without perforation or abscess without bleeding; I25.10 Atherosclerotic heart disease of native coronary artery without angina pectoris; Z90.5 Acquired absence of kidney
CPT/HCPCS: 71260; 74177; Q9967

== ENCOUNTER → 2021-06-27 11:06 | Outpatient (CLI) | payer MEDICARE, SELFPAY ==
[2021-06-27 12:26] LABS: COVID19 -Nasal RAPID Negative (Negative)
== END ==
PROVIDERS: PCP Internal Medicine; Visit Provider Urology
DX: Z01.818 Encounter for other preprocedural examination (principal); Z20.822 Contact with and (suspected) exposure to COVID-19
CPT/HCPCS: 81002; 87635

== ENCOUNTER 2021-06-29 12:27 | Day surgery (SDC) | payer MEDICARE, SELFPAY ==
[2021-06-26 14:18] VITALS: BMI 36.6
[2021-06-29] VITALS (11 sets, daily range): BP systolic 145–188; BP diastolic 79–107; PULSE 79–94; RESP 14–85; TEMP 35.7–36.8; O2SAT 94–98; BMI 36.6
--- NOTE | 2021-06-29 | PATH_ITS ---
[facility] Accession Number: [id number] . 01 Material submitted: . bladder - BLADDER TUMOR DOME . 01 Diagnosis: Bladder Tumor Dome: Papillary urothelial carcinoma, non-invasive. Please see Cancer Case Summary. . CANCER CASE SUMMARY . Specimen Procedure: Transurethral resection of bladder tumor. . Tumor Tumor site: Dome. Histologic type: Papillary urothelial carcinoma, non-invasive. Grade: Low-grade. . Tumor extent: Non-invasive papillary carcinoma. . Lymphovascular invasion: Not identified. . Muscularis propria: Present; uninvolved by tumor. . . [facility] 07/03/2021 1528 Local . 01 Comment: As part of ongoing director quality assurance, this case is also reviewed by Dr. Marian Rodriguez, who concurs with the given interpretation. . 01 Electronically signed: . Gris Ball MD, Pathologist NPI- [id number] . 01 Gross description: . BLADDER TUMOR DOME: Received in formalin are 2 fragment(s) of buckley, soft tissue measuring 0.5 x 0.3 x 0.2 cm to 0.4 x 0.3 x 0.1 cm submitted entirely in 1 cassette(s) /CPE 06/30/2021 0636 Local . 01 Pathologist provided ICD-10: C67.9 . 01 CPT . 402714 Specimen Comment: A courtesy copy of this report has been sent to [phone] Performed at: 01 [facility] [address] [place] [address] [id number] MD Srikanth Moffett MD Phone: [phone]
[2021-06-29] MEDS: LACTATED RINGERS 1,000 ML 42 ML IV (13:10)
[2021-06-29] MEDS: ALBUTEROL/IPRATROPIUM 3 ML AMPUL INH (13:29)
[2021-06-29] MEDS: CIPROFLOXACIN 400 MG/200 ML PIGGYBACK 200 MG IV (14:22)
--- NOTE | 2021-06-29 14:37 | SUR.OPER ---
Lithotomy on padded OR bed, head on pillow, arms secured on padded arm boards at <90 degrees abduction. Legs secured in padded yellow fins stirrups.
[2021-06-29] MEDS: WATER FOR INJECTION,STERILE 20 ML, mitoMYcin 20 MG INTRAVESIC (15:08)
[2021-06-29] MEDS: BELLADONNA/OPIUM SUPPOSITORIES 1 EACH PR (15:10)
--- NOTE | 2021-06-29 15:14 | PM.OP.1 ---
Procedure & Clinicians Procedure: Transurethral resection of bladder tumor with full duration placement of Stevenson catheter and installation of mitomycin Same procedure as scheduled: Yes Indications: This is a 65-year-old male with a history of bladder tumors who was found to have recurrent tumor presents this time for resection and instillation of mitomycin. He has approximately 8-10 of cm sized tumors distributed about the left dome and dome of bladder. Surgeon: Robb Gerardo Click Yes if Unassisted: Yes Anesthesia Type: General Operative Notes Findings: Urethra normal along its length with normal mucosa. Prostate shows moderate obstructive character. Ureteral orifices in normal position with clear efflux. Distributed along the left dome and dome of bladder are approximately 7-8 approximately cm size tumors which appeared to be low-grade. At the end of the procedure all of these had been destroyed and or resected. Hemostasis was good and mitomycin instilled within the bladder. Through an 18 Congolese 5 cc Stevenson catheter with 14 cc of sterile water in the balloon. Closure Type: not applicable Specimen(s): other (Fragments of bladder tumor) Applied: catheter ([address] Stevenson catheter 14 cc of sterile water in the balloon.) Estimated Blood Loss (mL): 15 Blood products transfused: none Procedure in detail: After informed consent was obtained, the patient was identified and brought to the operating room where he was placed in a supine position on the table. Patient then had anesthesia induced and maintained. And he was transitioned to the lithotomy position. The patient was then prepped, draped, prepared for transurethral procedure. After prepping draping ensuring an adequate level of anesthesia a 21 Congolese cystoscope was passed through the refill prostate and the bladder. Biopsy forceps were then inserted and several of the tumors were sterilely resected and the fragments removed. Resectoscope was then inserted after the cystoscope was removed and using the button the remainder of the lesions were resected/fulgurated and destroyed. The bladder was left full the scope removed and the cystoscope returned and with a 30 and 70 degree lens the bladder was inspected no further tumors were noted. The bladder was left full the scope was removed an 18 Congolese catheter was then passed through the urethra and into the bladder with the balloon was filled with sterile water as indicated above. Mitomycin was then instilled via close technique. There were no complications the patient tolerated procedure fit well the patient was awakened taken to postanesthesia care unit where he will have the mitomycin dwell in his bladder and be rolled from side to side over an hour and a half to 2 hour. . Complications: none Post-operative Condition: stable Disposition: PACU Plan for aftercare: Discharged home with Stevenson catheter follow-up in my office approximately 10 days to 14 days.
[2021-06-29] MEDS: PHENAZOPYRIDINE 100 MG TABLET 200 MG PO (15:32)
[2021-06-29] MEDS: OXYBUTYNIN 5 MG TABLET PO (15:37)
[2021-06-29] MEDS: LORazepam 2 MG/ML INJ 0.25 MG IV ×2 (15:53→16:09)
--- NOTE | 2021-06-29 16:32 | SUR.PHASEII ---
Addendum entered by Soumya Valencia R.N. 06/29/21 16:57: 1650 - Mitomycin drained from salazar per protocol and order Original Note: Dr. Mcdaniel aware of blood pressure, received order for labetalol if blood pressure remains >180 systolic. Blood pressure now consistently <180 systolic without labetalol
== END 2021-06-29 17:05 | disposition home or self-care (01) ==
PROVIDERS: PCP Internal Medicine; Referring Provider Urology; Visit Provider Urology
PROC: 0TBB8ZZ Excision of Bladder, Via Natural or Artificial Opening Endoscopic (ICD-10-PCS; principal; 2021-06-29 14:00)
DX: C67.1 Malignant neoplasm of dome of bladder (principal); G40.909 Epilepsy, unspecified, not intractable, without status epilepticus; I10 Essential (primary) hypertension; F17.210 Nicotine dependence, cigarettes, uncomplicated; Z85.51 Personal history of malignant neoplasm of bladder; Z86.73 Personal history of transient ischemic attack (TIA), and cerebral infarction without residual deficits
CPT/HCPCS: 52234; 82962; J0744; J1100; J2060; J2250; J2405; J2704; J3010; J9280

== ENCOUNTER 2021-07-07 08:39 | Emergency (ER) | payer MEDICARE, SELFPAY ==
[2021-07-07 08:55] VITALS: BP 137/71; PULSE 94; RESP 18; TEMP 36.5; O2SAT 98; BMI 33.9
--- NOTE | 2021-07-07 09:16 | ED.MALEGU ---
HPI - Male Genitourinary General Chief complaint: Urogenital-Male Stated complaint: cathater, poss infection, in lots of pain. Time Seen by Provider: 07/07/21 09:14 Source: patient Mode of arrival: Ambulatory Limitations: no limitations History of Present Illness HPI Narrative: This is a 65-year-old male with known history of nephrectomy for renal cell carcinoma and a TURP in the last week for multiple bladder tumors. Patient also has known seizure disorder and is on phenytoin, amlodipine and oxybutynin. Patient arrives today with pain at the urethral meatus and some discolored discharge. Patient states there is tenderness at the penis at the opening he denies any pain or tenderness elsewhere, no abdominal pain, no scrotal pain. He denies fevers. Denies nausea or vomiting. He denies back or flank pain. Patient states he feels like there has been some decrease in his urine output since his nephrectomy which was several years ago. He is draining blood-tinged urine which is clear but has not appreciated any clots or blockages. Patient has had some diarrhea recently. He denies any black or bloody stool. Patient is unsure of the exact date of his surgery but appears to be 06/29/2021. Patient lives with his , he is unaccompanied at this time. Related Data Previous Rx's Medication Instructions Recorded phenytoin sodium extended 100 mg 200 mg PO BID #120 cap 11/07/20 capsule amlodipine 10 mg tablet 10 mg PO DAILY #90 tab 11/10/20 oxybutynin chloride 5 mg tablet 5 mg PO BID-TID PRN #30 tab 06/29/21 phenazopyridine 200 mg tablet 200 mg PO TID PRN #30 tab 06/29/21 (Pyridium) levofloxacin 500 mg tablet 500 mg PO DAILY 10 Days #10 tab 07/07/21 Allergies Allergy/AdvReac Type Severity Reaction Status Date / Time Penicillins [PENICILLINS] Allergy Mild RASH Verified 06/29/21 12:48 Review of Systems Review of Systems ROS Unobtainable: All systems reviewed & are unremarkable except as noted in HPI and below Patient History Medical History Bladder tumor (~01/2019) Essential hypertension History of adenomatous polyp of colon (01/07/11) Renal cell carcinoma (~01/2019) Seizure disorder (01/07/11) Tobacco abuse Surgical History S/p nephrectomy (~02/2019) Status post colectomy Status post surgical removal and fulguration of bladder neoplasm Social History marital status: number of children: 4 household members: spouse Smoking Status: Current every day smoker alcohol intake: former Smoking Status: Current every day smoker alcohol intake frequency: 0-2 drinks per day Substance Use Type: marijuana Exam Narrative Exam Narrative: GENERAL: Alert and oriented x three, obese male in mild distress. HEENT: Head normocephalic, atraumatic, EOMI, pupils reactive, face symmetric, moist mucous membranes NECK: Supple, full range of motion CARDIOVASCULAR: Regular rate and rhythm without murmurs, rubs or gallops. RESPIRATORY: Breath sounds equal bilaterally, no wheezes rales or rhonchi. ABDOMEN: Soft, nontender. Normoactive bowel sounds all 4 quadrants. No guarding or rebound, rigidity, no mass : No CVA tenderness. Male: Circumcised male with swelling of the glands as well as penile shaft, patient has some brownish dried discharge at the urethral meatus, he is tender at the opening of the urethral meatus, Stevenson catheter is in place, draining blood-tinged trans. Urine with no clots, no penile lesions, ulcerations are noted. There is some warmth and erythema of the penis itself. Testicles non-tende they do not to be swollen but difficult to fully ascertain secondary to habitus, cremasteric reflex intact, no inguinal hernias noted. EXTREMITIES: Normal range of motion, no clubbing or edema. Neurovascularly intact NEUROLOGICAL: Cranial nerves II through XII grossly intact. Moving all extremities SKIN: Warm, dry, no petechiae, no rashes or lesions. Initial Vital Signs Initial Vital Signs: Vital Signs Temperature 97.7 F 07/07/21 08:55 Pulse Rate 94 H 07/07/21 08:55 Respiratory Rate 18 07/07/21 08:55 Blood Pressure 137/71 07/07/21 08:55 Pulse Oximetry 98 07/07/21 08:55 Course Orders Ordered: Discontinued Medications Metronidazole (Flagyl) 500 mg in 100 mls @ 100 mls/hr IV NOW ONE Stop: 07/07/21 10:31 Last Infusion: 07/07/21 11:12 Dose: 0 mls/hr Documented by: Admin: 07/07/21 09:50 Dose: 100 mls/hr Documented by: LISSETTE Levofloxacin (Levaquin) 750 mg in 150 mls @ 100 mls/hr IV NOW ONE Stop: 07/07/21 11:01 Last Infusion: 07/07/21 11:36 Dose: 0 mls/hr Documented by: Admin: 07/07/21 10:01 Dose: 100 mls/hr Documented by: LISSETTE Morphine Sulfate (Morphine 4 Mg/Ml Inj) 4 mg IV NOW ONE Stop: 07/07/21 09:26 Last Admin: 07/07/21 09:49 Dose: 4 mg Documented by: LISSETTE Reevaluation(s) Reevaluation #1: Recheck on patient, reviewed recommendations from Urology and plan. Patient feels come. Comfortable with this. He asked antibiotics we sent to [facility]. We did discuss return precautions as well. Time: 11:46 Consultations Consultation #1: Dr. Johnson, urology at [facility] reviewed patient's HPI. Recent op note, patient had a urinalysis on the which was negative is positive today with clear balanitis extending with cellulitis this shaft of the penis. Discussed CT findings and lab findings. As well exam. Recommend coverage for UTI, balanitis possibly barrier cream or localized corticosteroid patient to follow-up with his urologist at his scheduled appointment. They agree with current plan to leave catheter in place. Time: 11:33 Vital Signs Vital signs: Vital Signs - 8 hr 07/07/21 12:33 Temperature 97.7 F Pulse Oximetry 98 MDM - Male Genitourinary Lab Data Result diagrams: 07/07/21 09:20 07/07/21 09:20 Labs: Lab Results 07/07/21 07/07/21 07/07/21 Range/Units 09:20 09:20 09:20 WBC 7.6 (4.5-11.0) X10^3/uL RBC 4.58 (4.5-5.9) X10^6/uL Hgb 14.6 (13.5-17.5) g/dL Hct 42.5 (41-53) % MCV 92.6 (80-100) fL MCH 31.8 (26-34) PG MCHC 34.3 (30-36) % RDW 13.4 (11.6-14.8) % Plt Count 193 (150-400) X10^3/uL Neut % (Auto) 70.8 (50-75) % Lymph % (Auto) 16.0 L (25-40) % [place] % (Auto) 8.7 (3-14) % Eos % (Auto) 3.5 (2-4) % Baso % (Auto) 1.0 (0-2) % Neut # (Auto) 5400 (4855-5329) /uL Lymph # (Auto) 1200 (7940-8497) /uL [place] # (Auto) 700 (0-900) /uL Eos # (Auto) 300 (0-450) /uL Baso # (Auto) 100 (0-100) /uL Sodium 135 L (137-145) mmol/L Potassium 4.4 (3.4-5.1) mmol/L Chloride 103 (98-107) mmol/L Carbon Dioxide 23 (22-32) mmol/L BUN 21 H (9-20) mg/dL Creatinine 1.34 H (0.66-1.25) mg/dL Estimated GFR 60 (>60) mL/min BUN/Creatinine Ratio 15.7 (6-22) Glucose 116 H (80-110) mg/dL Lactate 0.7 (0.7-2.1) mmol/L Calcium 8.6 (8.4-10.2) mg/dL Urine Color Urine Appearance Urine pH (4.5-8.0) Ur Specific [place] (1.000-1.035) Urine Protein (Negative) Urine Glucose (UA) (Negative) g/dL Urine Ketones (NEGATIVE) Urine Occult Blood (Negative) Urine Nitrate (Negative) Urine Bilirubin (NEGATIVE) Urine Urobilinogen (0.2) E.U./dL Ur Leukocyte Esterase (NEGATIVE) Urine RBC (0-5/HPF) Urine WBC (0-5/HPF) Urine Bacteria (None) Ur Culture Indicated? 07/07/21 Range/Units 10:15 WBC (4.5-11.0) X10^3/uL RBC (4.5-5.9) X10^6/uL Hgb (13.5-17.5) g/dL Hct (41-53) % MCV (80-100) fL MCH (26-34) PG MCHC (30-36) % RDW (11.6-14.8) % Plt Count (150-400) X10^3/uL Neut % (Auto) (50-75) % Lymph % (Auto) (25-40) % [place] % (Auto) (3-14) % Eos % (Auto) (2-4) % Baso % (Auto) (0-2) % Neut # (Auto) (5969-1338) /uL Lymph # (Auto) (4984-4711) /uL [place] # (Auto) (0-900) /uL Eos # (Auto) (0-450) /uL Baso # (Auto) (0-100) /uL Sodium (137-145) mmol/L Potassium (3.4-5.1) mmol/L Chloride (98-107) mmol/L Carbon Dioxide (22-32) mmol/L BUN (9-20) mg/dL Creatinine (0.66-1.25) mg/dL Estimated GFR (>60) mL/min BUN/Creatinine Ratio (6-22) Glucose (80-110) mg/dL Lactate (0.7-2.1) mmol/L Calcium (8.4-10.2) mg/dL Urine Color [place] Urine Appearance Clear Urine pH 5.0 (4.5-8.0) Ur Specific [place] 1.020 (1.000-1.035) Urine Protein 3+ H (Negative) Urine Glucose (UA) Trace H (Negative) g/dL Urine Ketones Negative (NEGATIVE) Urine Occult Blood 3+ H (Negative) Urine Nitrate Positive H (Negative) Urine Bilirubin Negative (NEGATIVE) Urine Urobilinogen 2.0 H (0.2) E.U./dL Ur Leukocyte Esterase Trace H (NEGATIVE) Urine RBC 5-10/hpf H (0-5/HPF) Urine WBC 5-10/hpf H (0-5/HPF) Urine Bacteria None seen (None) Ur Culture Indicated? Specimen cultured Imaging Data CT scan - abdomen/pelvis: Radiologist's Impression: [address] [address] [address] Scan Report Signed Patient: Kaiden Corrales MR#: [id number] : 1955 Acct:[id number] Age/Sex: 65 / M Date of Service: 07/07/21 Loc: ED Accession Number: [id number] ?? Procedure: CT kidney ureter bladder (KUB) Ordering Provider: Abiola Garcia D.O. PROCEDURE:? CT KIDNEY URETER BLADDER (KUB) ? INDICATIONS:? penile swelling, recent TURP, no scrotal involvement noted. ? TECHNIQUE:? Axial sections were acquired from the lung bases to the pubic symphysis.? Coronal and sagittal reformats were performed.? For radiation dose reduction, the following was used: ?automated exposure control, adjustment of mA and/or kV according to patient size.? ? COMPARISON:? [facility], CT, CT CHEST ABD PEL W CON, 06/05/2021, 13:59.? [facility], CT, CT KIDNEY URETER BLADDER (KUB), 01/17/2020, 13:31. ? FINDINGS:? Image quality:? Excellent.? ? Lung bases:? Unremarkable.? ? Heart:? No significant findings. ? URINARY: Right Kidney: ? No stones or hydronephrosis.? Right Ureter:? No hydroureter.? ? Left Kidney:? Surgical changes reflecting left nephrectomy.? There is a punctate soft tissue density measuring approximately 2 mm in the medial aspect of the left renal fossa seen on series 2, image 22.? This is not clearly identified on prior exams. ? Bladder:? Normal wall thickness. No stones. ? ? ? ABDOMEN: Liver:? Unremarkable.? ? Gallbladder:? Luminal stones are again noted without wall thickening.? ? Biliary ducts:? Unremarkable.? ? Pancreas:? Unremarkable.? ? Spleen:? Unremarkable.? ? Adrenal Glands:? Unremarkable.? ? ? Stomach and Bowel:? Stomach, small bowel loops, and colon are unremarkable.? Peritoneum:? No abnormal intraperitoneal fluid.? No free air.? ? Ventral Wall: ? No hernia.? Abdominal Nodes:? No enlarged retroperitoneal or mesenteric lymph nodes.? Vessels:? Aorta and inferior vena cava are normal in size.? ? PELVIS: Pelvic Organs:? There is appearance of edema and fluid within the partially visualized scrotum.? Mild perineal soft tissue edema is present.? No abscess or free air is identified. Pelvic Nodes: Unremarkable. Miscellaneous:? Fat containing inguinal hernias are present.. ? ? ? Bones:? Unremarkable. ? IMPRESSION:? ? Mild appearance of edema within the perineal soft tissues as well as edema and possibly fluid within the partially visualized scrotum.? No evidence of abscess.? If concern persists, testicular ultrasound may be obtained. ? ? Left nephrectomy.? Punctate soft tissue density is noted in the renal fossa, not seen on prior exam.? This may have been obscured secondary to artifact.? However, short interval imaging follow-up of this region is recommended to exclude presence of recurrent disease. ? ? Dictated by: Albertina Pandey M.D. on 07/07/2021 at 10:18 ? ? Approved by: Albertina Pandey M.D. on 07/07/2021 at 10:24?? MDM Narrative Medical decision making narrative: 65-year-old male with recent transurethral resection and cystoscopy of multiple bladder tumors with Stevenson catheter in place. Patient has had a history of nephrectomy secondary to renal cell carcinoma remotely. Patient has pain with some discharge at the urethral opening and I appreciate swelling of the penis itself. He is circumcised no signs of phimosis or paraphimosis. Patient does not have any tenderness of the scrotum or abdomen. Stevenson catheter appears in place. Labs, culture and imaging were obtained. Patient started on antibiotics. Pain medication and consultation with Urology, recommendations include coverage with antibiotics, very clean localized to the urethral meatus there may be a component of light a [place] dermatitis but discussed is tracking somewhat up the penis so likely a bacterial infection. They agree with plan to leave Stevenson catheter in place at this time. All questions answered. Antibiotic coverage for UTI/balanitis recommendations include traditional a bike such as Levaquin amoxicillin, Bactrim. Discharge Plan Departure Patient Disposition: Home Clinical Impression: Penile cellulitis, Acute UTI Instructions: DI for Urinary Tract Infection (UTI) Activity Restrictions/Additional Instructions: Your case was discussed with on-call Urology through [facility]. Follow-up with your urologist in the next several days at your scheduled follow-up for recheck and catheter removal. You appear to have an infection of the skin of the penis, you also appear to have infection in your urine. Please take antibiotics until completely gone. Culture from the opening of the penis was obtained and takes several days to result but if there is resistance or needs antibiotics changed you will be contacted. Use barrier ointment to the affected area any time you change your underwear. Ointment is included with discharge. Prescription sent to [facility] in [place]. Please return for fevers, increasing swelling, pain, if your catheter is not draining if there was large blood clots, for having issues with bowel movements or redness or swelling is spreading throughout the scrotum, lower abdomen or having other new or concerning changes. Prescriptions: New levofloxacin 500 mg tablet 500 mg PO DAILY 10 Days Qty: 10 0RF No Action phenytoin sodium extended 100 mg capsule 200 mg PO BID Qty: 120 11RF amlodipine 10 mg tablet 10 mg PO DAILY Qty: 90 3RF oxybutynin chloride 5 mg tablet 5 mg PO BID-TID PRN (Reason: bladder spasms) Qty: 30 0RF phenazopyridine [Pyridium] 200 mg tablet 200 mg PO TID PRN (Reason: pain) Qty: 30 0RF Referrals: Norm Clifton MD [Primary Care Provider] -
--- NOTE | 2021-07-07 09:36 | DI.CT.S_ITS ---
PROCEDURE: CT KIDNEY URETER BLADDER (KUB) INDICATIONS: penile swelling, recent TURP, no scrotal involvement noted. TECHNIQUE: Axial sections were acquired from the lung bases to the pubic symphysis. Coronal and sagittal reformats were performed. For radiation dose reduction, the following was used: automated exposure control, adjustment of mA and/or kV according to patient size. COMPARISON: Merged With [facility], CT, CT CHEST ABD PEL W CON, 06/05/2021, 13:59. Merged With [facility], CT, CT KIDNEY URETER BLADDER (KUB), 01/17/2020, 13:31. FINDINGS: Image quality: Excellent. Lung bases: Unremarkable. Heart: No significant findings. URINARY: Right Kidney: No stones or hydronephrosis. Right Ureter: No hydroureter. Left Kidney: Surgical changes reflecting left nephrectomy. There is a punctate soft tissue density measuring approximately 2 mm in the medial aspect of the left renal fossa seen on series 2, image 22. This is not clearly identified on prior exams. Bladder: Normal wall thickness. No stones. ABDOMEN: Liver: Unremarkable. Gallbladder: Luminal stones are again noted without wall thickening. Biliary ducts: Unremarkable. Pancreas: Unremarkable. Spleen: Unremarkable. Adrenal Glands: Unremarkable. Stomach and Bowel: Stomach, small bowel loops, and colon are unremarkable. Peritoneum: No abnormal intraperitoneal fluid. No free air. Ventral Wall: No hernia. Abdominal Nodes: No enlarged retroperitoneal or mesenteric lymph nodes. Vessels: Aorta and inferior vena cava are normal in size. PELVIS: Pelvic Organs: There is appearance of edema and fluid within the partially visualized scrotum. Mild perineal soft tissue edema is present. No abscess or free air is identified. Pelvic Nodes: Unremarkable. Miscellaneous: Fat containing inguinal hernias are present.. Bones: Unremarkable. IMPRESSION: Mild appearance of edema within the perineal soft tissues as well as edema and possibly fluid within the partially visualized scrotum. No evidence of abscess. If concern persists, testicular ultrasound may be obtained. Left nephrectomy. Punctate soft tissue density is noted in the renal fossa, not seen on prior exam. This may have been obscured secondary to artifact. However, short interval imaging follow-up of this region is recommended to exclude presence of recurrent disease. Dictated by: Albertina Pandey M.D. on 07/07/2021 at 10:18 Approved by: Albertina Pandey M.D. on 07/07/2021 at 10:24
[2021-07-07 09:38] LABS: Add Manual Diff / Slide Review NO; Basophils Absolute Auto 100 /uL (0-100); Eosinophils Absolute Auto 300 /uL (0-450); Eosinophils Percent Auto 3.5 % (2-4); Hematocrit 42.5 % (41-53); Hemoglobin 14.6 g/dL (13.5-17.5); Lymphocytes Absolute Auto 1200 /uL (1100-4500); Mean Corpuscular HGB Conc 34.3 % (30-36); Mean Corpuscular Hemoglobin 31.8 PG (26-34); Mean Corpuscular Volume 92.6 fL (80-100); Monocytes Absolute Auto 700 /uL (0-900); Monocytes Percent Auto 8.7 % (3-14); Neutrophils Absolute Auto 5400 /uL (1500-7000); Neutrophils Percent Auto 70.8 % (50-75); Platelet Count 193 X10^3/uL (150-400); Red Blood Cell Count 4.58 X10^6/uL (4.5-5.9); Red Cell Distribution Width 13.4 % (11.6-14.8); White Blood Cell Count 7.6 X10^3/uL (4.5-11.0)
[2021-07-07 09:49] LABS: Lactate (Lactic Acid) 0.7 mmol/L (0.7-2.1)
[2021-07-07] MEDS: MORPHINE 4 MG/ML INJ IV (09:49)
[2021-07-07 09:50] LABS: BUN Creatinine Ratio 15.7 (6-22); Blood Urea Nitrogen 21 mg/dL (9-20); Calcium 8.6 mg/dL (8.4-10.2); Carbon Dioxide 23 mmol/L (22-32); Chloride 103 mmol/L (98-107); Estimated Glomerular Filt Rate 60 mL/min (>60); Glucose 116 mg/dL (80-110); HEMOLYSIS < 15 (0-50); Potassium 4.4 mmol/L (3.4-5.1); Sodium 135 mmol/L (137-145)
[2021-07-07] MEDS: metroNIDAZOLE 500 MG/100 ML PIGGYBACK 100 MG IV (09:50)
[2021-07-07 10:00] VITALS: PULSE 90; RESP 18; O2SAT 97
[2021-07-07] MEDS: levoFLOXacin 750 MG/150 ML PIGGYBACK 100 MG IV (10:01)
[2021-07-07 10:35] LABS: Appearance Urine UA CLEAR; Bilirubin Urine UA NEGATIVE (NEGATIVE); Glucose Urine UA TRACE g/dL (Negative); Ketones Urine UA NEGATIVE (NEGATIVE); Leukocyte Esterase Urine UA TRACE (NEGATIVE); Nitrite Urine UA POSITIVE (Negative); Occult Blood Urine UA 3+ (Negative); Protein Urine UA 3+ (Negative)
[2021-07-07 10:37] LABS: Color Urine UA ORANGE
[2021-07-07 10:57] LABS: Bacteria Urine None Seen; Culture Indicated Urine Specimen Cultured; RBC Urine 5-10/HPF (0-5/HPF); WBC Urine 5-10/HPF (0-5/HPF)
[2021-07-07 11:00] VITALS: PULSE 89
[2021-07-07 11:30] VITALS: BP 142/69; PULSE 88; RESP 18; O2SAT 97
[2021-07-07 12:33] VITALS: TEMP 36.5; O2SAT 98
== END 2021-07-07 12:34 | disposition home or self-care (01) ==
PROVIDERS: Emergency Provider Emergency Medicine; PCP Internal Medicine
DX: N48.22 Cellulitis of corpus cavernosum and penis (principal); N39.0 Urinary tract infection, site not specified
CPT/HCPCS: 36415; 74176; 80048; 81001; 83605; 85025; 87040; 87070; 87077; 87086; 87147; 87205; 96365; 96366; 96368; 96375; 99284; J1956; J2270

== ENCOUNTER → 2021-12-03 10:39 | Outpatient (CLI) | payer MEDICARE, SELFPAY ==
[2021-12-03 12:38] LABS: Alanine Aminotransferase 38 IU/L (<50); Albumin 4.3 g/dL (3.5-5.0); Albumin Globulin Ratio 1.3 (1.0-2.8); Alkaline Phosphatase 85 U/L (38-126); Aspartate Aminotransferase 27 IU/L (17-59); BUN Creatinine Ratio 15.2 (6-22); Bilirubin Total 0.5 mg/dL (0.2-1.3); Blood Urea Nitrogen 21 mg/dL (9-20); Calcium 8.6 mg/dL (8.4-10.2); Carbon Dioxide 24 mmol/L (22-32); Chloride 104 mmol/L (98-107); Estimated Glomerular Filt Rate 57 mL/min (>60); Globulin 3.2 g/dL (1.7-4.1); Glucose 149 mg/dL (80-110); HEMOLYSIS < 15 (0-50); Potassium 4.2 mmol/L (3.4-5.1); Sodium 139 mmol/L (137-145); Total Protein 7.5 g/dL (6.3-8.2)
== END ==
PROVIDERS: PCP Internal Medicine; Referring Provider Internal Medicine; Visit Provider Internal Medicine
DX: G40.909 Epilepsy, unspecified, not intractable, without status epilepticus (principal); I10 Essential (primary) hypertension
CPT/HCPCS: 36415; 80053

== ENCOUNTER → 2022-11-04 10:35 | Outpatient (CLI) | payer MEDICARE, SELFPAY ==
[2022-11-04 12:20] LABS: Alanine Aminotransferase 41 IU/L (<50); Albumin 4.2 g/dL (3.5-5.0); Albumin Globulin Ratio 1.6 (1.0-2.8); Alkaline Phosphatase 74 U/L (38-126); Aspartate Aminotransferase 28 IU/L (17-59); BUN Creatinine Ratio 12.3 (6-22); Bilirubin Total 0.4 mg/dL (0.2-1.3); Blood Urea Nitrogen 17 mg/dL (9-20); Calcium 8.8 mg/dL (8.4-10.2); Carbon Dioxide 21 mmol/L (22-32); Chloride 105 mmol/L (98-107); Estimated Glomerular Filt Rate 57 mL/min (>60); Globulin 2.7 g/dL (1.7-4.1); Glucose 131 mg/dL (80-110); HEMOLYSIS < 15 (0-50); Phenytoin / Dilantin 7.7 ug/mL (10-20); Potassium 4.3 mmol/L (3.4-5.1); Sodium 135 mmol/L (137-145); Total Protein 6.9 g/dL (6.3-8.2)
[2022-11-04 12:47] LABS: Prostate Specific Antigen Scrn 0.464 ng/mL (0.1-4.0)
== END ==
PROVIDERS: PCP Internal Medicine; Referring Provider Internal Medicine; Visit Provider Internal Medicine
DX: R73.9 Hyperglycemia, unspecified (principal); Z12.5 Encounter for screening for malignant neoplasm of prostate; C67.9 Malignant neoplasm of bladder, unspecified; I10 Essential (primary) hypertension; Z13.6 Encounter for screening for cardiovascular disorders
CPT/HCPCS: 36415; 80053; 80185; 83036; G0103

== ENCOUNTER 2023-12-30 08:43 | Emergency (ER) | payer MEDICARE, SELFPAY ==
[2023-12-30 08:40] VITALS: BP 170/79; PULSE 102; RESP 20; TEMP 36.4; O2SAT 97; BMI 32.5
--- NOTE | 2023-12-30 08:50 | DI.RAD.S_ITS ---
PROCEDURE: XR ANKLE LT MIN 3V INDICATIONS: fall TECHNIQUE: 3 views of the ankle were acquired. COMPARISON: None. FINDINGS: Bones: Spiral fracture of the fibula at the level of the syndesmosis. No widening of the medial or lateral clear space. No posterior malleolus or medial malleolus fracture. Soft tissues: No tibiotalar joint effusion. Achilles tendon appears normal. IMPRESSION: Perdomo type B fracture of the distal fibula at the level of the syndesmosis. No unstable fracture features. Dictated by: Jarek Campos M.D. on 12/30/2023 at 9:22 Approved by: Jarek Campos M.D. on 12/30/2023 at 9:23
--- NOTE | 2023-12-30 08:50 | DI.RAD.S_ITS ---
PROCEDURE: XR FOOT LT MIN 3V INDICATIONS: fall TECHNIQUE: 3 views of the foot were acquired. COMPARISON: [facility], CR, XR ANKLE LT MIN 3V, 12/30/2023, 8:51. FINDINGS: Bones: Spiral fracture of the distal fibula. Soft tissues: No tibiotalar joint effusion. Achilles tendon appears normal. IMPRESSION: Spiral fracture of the distal fibula. Dictated by: Jarek Campos M.D. on 12/30/2023 at 9:20 Approved by: Jarek Campos M.D. on 12/30/2023 at 9:22
--- NOTE | 2023-12-30 09:16 | PC.NURSE ---
Pt denies tripping or feeling weak/dizzy then falling. Pt reports left ankle pain. Left great toe swelling. Pt states the fall happened yesterday--pt reports 2 falls recently.
--- NOTE | 2023-12-30 11:14 | ED.LOWEXIN ---
HPI - Extremity Injury (Lower) General Chief Complaint: Extremity Injury, Lower Stated Complaint: GLFx2/ L ankle pain Time Seen by Provider: 12/30/23 10:36 Source: patient, EMS, RN notes reviewed, old records reviewed and other (friend) Mode of arrival: EMS Limitations: no limitations History of Present Illness HPI Narrative: 68-year-old male history of nephrectomy for renal cell carcinoma, prior TURP, seizure disorder on Dilantin and hypertension who presents with complaint of fall. Patient states he fell yesterday was walking down steps at the [employer] when he slipped in the rain and hurt his foot. He states it has still been painful and today tripped again and fell. He complains of pain in his ankle and great toe. States it is painful to weightbear. Patient states no aspirin or other anticoagulants. Denies hitting his head. Denies any other injuries. Denies neck or back pain. No chest pain or shortness of breath. No nausea or vomiting. No dizziness or lightheadedness. No syncope or loss of consciousness. No new loss of bowel or bladder control, no other GI or urinary symptoms. Denies any numbness or tingling of his extremities. Patient states no recent seizure activity. Has been taking his medications. Describes allergy to penicillin. Does smoke daily, occasional alcohol, uses marijuana denies other recreational drugs. Arrived via EMS, patient's neighbor who assisted him after he fell is at bedside. Related Data Previous Rx's Medication Instructions Recorded phenytoin sodium extended 100 mg 200 mg (2 x 100 mg) PO BID #120 02/27/23 capsule caps sulfamethoxazole 800 1 tab PO Q12H #20 tabs 03/24/23 mg-trimethoprim 160 mg tablet amlodipine 10 mg tablet 10 mg PO DAILY #90 tabs 09/10/23 hydrocodone 5 mg-acetaminophen 325 1 tab PO Q6H PRN pain #14 tabs 12/30/23 mg tablet Allergies Allergy/AdvReac Type Severity Reaction Status Date / Time Penicillins [PENICILLINS] Allergy Mild RASH Verified 12/30/23 09:59 Review of Systems Review of Systems ROS Unobtainable: All systems reviewed & are unremarkable except as noted in HPI and below Patient History Medical History Hyperglycemia Bladder cancer Tobacco abuse Essential hypertension Renal cell carcinoma (~01/2019) History of adenomatous polyp of colon (01/07/11) Seizure disorder (01/07/11) Surgical History Status post surgical removal and fulguration of bladder neoplasm S/p nephrectomy (~02/2019) Status post colectomy Social History marital status: number of children: 4 household members: spouse Smoking Status: Current every day smoker alcohol intake: former Smoking Status: Current every day smoker alcohol intake frequency: 0-2 drinks per day Substance Use Type: marijuana Exam Narrative Exam Narrative: GENERAL: Alert and oriented x three, male in mild distress HEENT: Head normocephalic, atraumatic, EOMI, pupils reactive, face symmetric, moist mucous membranes NECK: Supple, full range of motion CARDIOVASCULAR: Regular rate and rhythm without murmurs, rubs or gallops. RESPIRATORY: Breath sounds equal bilaterally, no wheezes rales or rhonchi. ABDOMEN: Soft, nontender. Normoactive bowel sounds all 4 quadrants. No guarding or rebound, rigidity, no mass : No CVA tenderness EXTREMITIES: Normal range of motion accept up the left ankle, patient has tenderness over the ankle. Also has tenderness over the great toe. Patient has some ecchymosis of the great toe. There is some mild swelling on the area of the lateral malleoli. No lacerations or abrasions noted., no clubbing or edema. Neurovascularly intact. Cap refill less than 2 seconds. NEUROLOGICAL: Cranial nerves II through XII grossly intact. Moving all extremities SKIN: Warm, dry, no petechiae, no rashes or lesions. Initial Vital Signs Initial Vital Signs: Vital Signs Temperature 97.6 F 12/30/23 08:40 Pulse Rate 102 H 12/30/23 08:40 Respiratory Rate 20 12/30/23 08:40 Blood Pressure 170/79 H 12/30/23 08:40 Pulse Oximetry 97 12/30/23 08:40 Oxygen Delivery Method Room Air 12/30/23 08:40 Course Orders Ordered: Discontinued Medications Hydrocodone Bitart/Acetaminophen (Hydrocodone/Acet 5/325 Tablet) 1 tab PO NOW ONE Stop: 12/30/23 11:30 Last Admin: 12/30/23 11:48 Dose: 1 tab Documented By: SHAUNA Vital Signs Vital signs: Vital Signs - 8 hr 12/30/23 12:21 Temperature 98.1 F Pulse Rate 91 H Respiratory Rate 19 Blood Pressure 162/79 H Pulse Oximetry 97 Oxygen Delivery Method Room Air MDM - Extremity Injury (Lower) Imaging Data Extremity x-ray #1: Radiologist's Impression: [address] [address] XRay Report Signed Patient: Kaiden Corrales MR#: [id number] : 1955 Acct:[id number] Age/Sex: 68 / M Date of Service: 12/30/23 Loc: ED Accession Number: [id number] Procedure: XR ankle LT min 3V Ordering Provider: Abiola Garcia D.O. PROCEDURE: XR ANKLE LT MIN 3V INDICATIONS: fall TECHNIQUE: 3 views of the ankle were acquired. COMPARISON: None. FINDINGS: Bones: Spiral fracture of the fibula at the level of the syndesmosis. No widening of the medial or lateral clear space. No posterior malleolus or medial malleolus fracture. Soft tissues: No tibiotalar joint effusion. Achilles tendon appears normal. IMPRESSION: Perdomo type B fracture of the distal fibula at the level of the syndesmosis. No unstable fracture features. Dictated by: Jarek Campos M.D. on 12/30/2023 at 9:22 Approved by: Jarek Campos M.D. on 12/30/2023 at 9:23 Extremity x-ray #2: Radiologist's Impression: [address] [address] XRay Report Signed Patient: Kaiden Corrales MR#: [id number] : 1955 Acct:[id number] Age/Sex: 68 / M Date of Service: 12/30/23 Loc: ED Accession Number: [id number] Procedure: XR foot LT min 3V Ordering Provider: Abiola Garcia D.O. PROCEDURE: XR FOOT LT MIN 3V INDICATIONS: fall TECHNIQUE: 3 views of the foot were acquired. COMPARISON: [facility], XR ANKLE LT MIN 3V, 12/30/2023, 8:51. FINDINGS: Bones: Spiral fracture of the distal fibula. Soft tissues: No tibiotalar joint effusion. Achilles tendon appears normal. IMPRESSION: Spiral fracture of the distal fibula. Dictated by: Jarek Campos M.D. on 12/30/2023 at 9:20 Approved by: Jarek Campos M.D. on 12/30/2023 at 9:22 [facility] Narrative Medical decision making narrative: 68-year-old male with mechanical ground level fall. Notes he slipped yesterday his ankle was already bothering him he has not 100% sure he might have broken yesterday versus today has been trying to walk on it was very painful and fell again. Foot x-ray notes spiral fracture of the distal tibia no other bony changes appreciated. Ankle x-ray shows spiral fracture of fibula of the level of the syndesmosis, Perdomo type B fracture no unstable fracture features. Spoke with Dr. Wood, on-call for Orthopedic surgery he is comfortable with using ortho boot keeping ankle at 90?, nonweightbearing and will likely see tomorrow in the office for stress images and potential repair. Patient neurovascularly intact pre and post ortho boot placement. Discussed with patient plan for follow up tomorrow he normally uses a rolling walker so we will set him up with walker. Short course of narcotic pain medication with a plan for follow up with Orthopedic surgery. Patient provided a walker here in the department. Discharge Plan Departure Patient Disposition: Home Clinical Impression: Ankle fracture Qualifiers: Encounter type: initial encounter Fracture type: closed Laterality: left Qualified Code(s): S82.892A - Other fracture of left lower leg, initial encounter for closed fracture Instructions: DI for Ankle Fracture Activity Restrictions/Additional Instructions: Follow up with Orthopedic surgery, Dr. Wood would like to see you in the office tomorrow. If you have not heard from them by this afternoon please call before 4:00 p.m. to set up an appointment time. Use walker as needed, you should be nonweightbearing on your ankle. You can take [place] 1-2 tablets every 6 hours as needed for pain. This medication can make you sleepy do not drive, perform hazardous activities or make any major decisions while taking it. This medication will make you constipated please take a stool softener once to twice daily until stools are soft and regular. Prescription sent to [facility] in [place]. Splint Care: Keep splint clean and dry. Elevated affected body part to decrease swelling. OK to use ice pack on the affected body part. Use for 15-20 minutes each time, for 5-6x per day. If you develop worsening pain, numbness, tingling, discoloration of the affected body part, loosen the splint by loosening the MELVI wrap, and either see your doctor for an urgent re-assessment, or return to the Emergency Department. Return to the Emergency Department for any new or worsening symptoms. Prescriptions: New hydrocodone-acetaminophen 5-325 mg tablet 1 tab PO Q6H PRN (Reason: pain) Qty: 14 0RF No Action phenytoin sodium extended 100 mg capsule 200 mg PO BID Qty: 120 12RF amlodipine 10 mg tablet 10 mg PO DAILY Qty: 90 3RF sulfamethoxazole-trimethoprim 800-160 mg tablet 1 tab PO Q12H Qty: 20 0RF Referrals: Dillon Wood MD [Physician] - Norm Clifton MD [Primary Care Provider] - Stand Alone Forms: Patient Portal/API/Survey
[2023-12-30] MEDS: HYDROCODONE/ACET 5/325 TABLET 1 TAB PO (11:48)
[2023-12-30 12:21] VITALS: BP 162/79; PULSE 91; RESP 19; TEMP 36.7; O2SAT 97
== END 2023-12-30 12:22 | disposition home or self-care (01) ==
PROVIDERS: Emergency Provider Emergency Medicine; PCP Internal Medicine
DX: S82.892A Other fracture of left lower leg, initial encounter for closed fracture (principal); W01.0XXA Fall on same level from slipping, tripping and stumbling without subsequent striking against object, initial encounter
CPT/HCPCS: 73610; 73630; 99283

== ENCOUNTER → 2024-03-04 10:15 | Outpatient (CLI) | payer MEDICARE, SELFPAY ==
[2024-03-04 11:42] LABS: Hemoglobin A1C% w Est Avg Glu 5.2 % (4.0-6.0)
[2024-03-04 12:03] LABS: Alanine Aminotransferase 42 IU/L (<50); Albumin 4.6 g/dL (3.5-5.0); Albumin Globulin Ratio 1.8 (1.0-2.8); Alkaline Phosphatase 75 U/L (38-126); Aspartate Aminotransferase 32 IU/L (17-59); BUN Creatinine Ratio 13.3 (6-22); Bilirubin Total 0.5 mg/dL (0.2-1.3); Blood Urea Nitrogen 17 mg/dL (9-20); Calcium 9.4 mg/dL (8.4-10.2); Carbon Dioxide 26 mmol/L (22-32); Chloride 103 mmol/L (98-107); Cholesterol 201 mg/dL (140-199); Estimated Glomerular Filt Rate > 60 mL/min (>60); Globulin 2.6 g/dL (1.7-4.1); Glucose 93 mg/dL (80-110); HDL Cholesterol 60 mg/dL (40-60); HEMOLYSIS < 15 (0-50); LDL Cholesterol Calculated 110 mg/dL (<100); Sodium 139 mmol/L (137-145); Total Protein 7.2 g/dL (6.3-8.2); Triglycerides 155 mg/dL (35-150)
[2024-03-04 12:05] LABS: Potassium 5.5 mmol/L (3.4-5.1)
[2024-03-04 12:30] LABS: Prostate Specific Antigen Scrn 0.666 ng/mL (0.1-4.0)
== END ==
PROVIDERS: PCP Internal Medicine; Referring Provider Internal Medicine; Visit Provider Internal Medicine
DX: R73.9 Hyperglycemia, unspecified (principal); I10 Essential (primary) hypertension; Z12.5 Encounter for screening for malignant neoplasm of prostate; G40.909 Epilepsy, unspecified, not intractable, without status epilepticus
CPT/HCPCS: 36415; 80053; 80061; 80185; 83036; G0103

== ENCOUNTER 2024-04-26 07:48 | Day surgery (SDC) | payer MEDICARE, SELFPAY ==
--- NOTE | 2024-04-26 | PATH_ITS ---
[facility] Accession Number: [id number] No. of containers..01 Tissue . 01 Material submitted: . rectum - RECTAL POLYP . 01 Diagnosis: RECTAL POLYP: Hyperplastic polyp. STO 04/28/20247 Local . 01 Electronically signed: . Srikanth Moffett MD, Pathologist NPI- [id number] . 01 Gross description: . RECTAL POLYP: Received in formalin is 1 fragment(s) of buckley, soft tissue measuring 0.6 x 0.5 x 0.4 cm submitted entirely in 1 cassette(s) /VEGA 04/28/2024 Local . 01 Pathologist provided ICD-10: K62.1 . 01 CPT . 097978 Specimen Comment: A courtesy copy of this report has been sent to [phone] Performed at: [address] [id number] MD Srikanth Moffett MD Phone: [phone]
[2024-04-26] MEDS: LACTATED RINGERS 1,000 ML 100 ML IV (08:07)
[2024-04-26] MEDS: ALBUTEROL/IPRATROPIUM 3 ML AMPUL INH (08:19)
[2024-04-26 08:20] VITALS: BP 151/91; PULSE 97; RESP 16; TEMP 36.4; O2SAT 97
--- NOTE | 2024-04-26 08:40 | SUR.PREOP ---
bilateral groin rash from wearing 2 pairs of pants.
--- NOTE | 2024-04-26 09:15 | PM.HP.IH.1 ---
History of Present Illness History of Present Illness Date Patient Seen: 04/26/24 Chief complaint: SDC Narrative: History of colon polyps 1 needing surgical excision in the past. Need for follow-up colonoscopy [facility] Medical History (Updated 03/11/24 @ 14:14 by Norm Clifton MD) Mixed hyperlipidemia Smoker unmotivated to quit Chronic renal failure, stage 3a Hyperglycemia Bladder cancer Tobacco abuse Essential hypertension Renal cell carcinoma (~01/2019) History of adenomatous polyp of colon (01/07/11) Seizure disorder (01/07/11) Surgical History Status post surgical removal and fulguration of bladder neoplasm S/p nephrectomy (~02/2019) Status post colectomy Social History marital status: number of children: 4 household members: spouse Smoking Status: Current every day smoker alcohol intake: former Meds Home Medications and Allergies Home Medications Medication Instructions Recorded Confirmed Type amlodipine 10 mg tablet 10 mg PO DAILY #90 tabs 09/10/23 04/26/24 Rx phenytoin sodium extended 100 mg 200 mg (2 x 100 mg) PO BID #360 03/11/24 04/26/24 Rx capsule caps rosuvastatin 10 mg tablet 10 mg PO DAILY #90 tabs 03/11/24 03/11/24 Rx sodium,potassium,mag sulfates 17.5 See Rx Instructions PO .COMPLEX 04/06/24 Rx gram-3.13 gram-1.6 gram oral soln #354 mL (Suprep Bowel Prep Kit) amlodipine 10 mg tablet 10 mg PO DAILY 04/26/24 04/26/24 History Allergies Allergy/AdvReac Type Severity Reaction Status Date / Time Penicillins [PENICILLINS] Allergy Mild RASH Verified 03/11/24 13:40 Exam Vital Signs (past 8 hours): - 04/26/24 08:20 Temperature 97.6 F Pulse Rate 97 H Respiratory Rate 16 Blood Pressure 151/91 H Pulse Oximetry 97 Oxygen Delivery Method Room Air Oxygen Delivery Method Room Air Narrative Exam Narrative: Oropharynx free of lesions Chest clear to percussion but with significant expiratory wheezes. He states he is in his baseline. He continues to smoke cigarettes. Assessment & Plan Assessment & Plan narrative: History of adenomatous colon polyps need for follow-up colonoscopy. Risks, benefits, alternatives have been explained. Time-Based Coding :: [TOTAL MINUTES] spent with patient and on the chart (including review of chart, obtaining history, exam, reviewing outside data, placing orders, documenting exam and treatment plan, and counseling patient) on [DATE]. [employer] Document charge(s): No
--- NOTE | 2024-04-26 09:17 | PM.OP.COLON ---
Operative Date/Time/Diagnoses Date of procedure: 04/26/24 Pre-op diagnosis: See indication and findings Post-op diagnosis: same Procedure & Clinicians Study performed: Colonoscopy Same procedure as scheduled: Yes Indications: History of adenomatous colon polyps Surgeon: Robb Carter Procedure Notes Procedure in detail: After informed consent was obtained the patient was placed in left lateral decubitus position. The video colonoscope was introduced the rectum slowly advanced cecum. Preparation was good. On slow withdrawal mucosa was carefully examined. The scope was removed. The patient tolerated procedure well. Blood loss none Complications none Sedation Findings 1. 1 cm semi pedunculated polyp in the upper rectum at the site of some previous surgery. Snared and removed completely on an endo cut setting. 2. Abnormalities the cecum probably related to previous surgery 3. Otherwise negative colonoscopy to cecum Will be in touch regarding the biopsies. Patient may need follow-up colonoscopy in 5 years
[2024-04-26 09:47] VITALS: BP 122/72; PULSE 84; RESP 16; TEMP 36.2; O2SAT 100
[2024-04-26 09:52] VITALS: BP 125/76; PULSE 86; RESP 18; O2SAT 95
[2024-04-26 09:58] VITALS: BP 138/76; PULSE 83; RESP 19; TEMP 36.7; O2SAT 98
== END 2024-04-26 10:15 | disposition home or self-care (01) ==
PROVIDERS: PCP Internal Medicine; Referring Provider Internal Medicine Gastroenterology; Visit Provider Internal Medicine Gastroenterology
PROC: 0DJD8ZZ Inspection of Lower Intestinal Tract, Via Natural or Artificial Opening Endoscopic (ICD-10-PCS; CPT 45378; principal; 2024-04-26 09:00)
DX: Z12.11 Encounter for screening for malignant neoplasm of colon (principal); Z86.0101 Personal history of adenomatous and serrated colon polyps; K62.1 Rectal polyp
CPT/HCPCS: 45385; J2704